=== PATIENT | female | born 1985 | race Caucasian/White ===

== ENCOUNTER 2016-09-17 10:20 | Emergency (ER) | payer OTHER ==
[~2016-09-17 10:20] MED LIST: /LAMO10TA PO; ALPR0.5T3 PO; BACTDSTA PO; BUPR10TASR PO; BUPR15TAXL PO; CLIN1CAP5 PO; DOCU100T PO; GILD1TAB PO; IBUP100SUS PO; IRON325T3 PO; LAMO10TA PO; LITH300C PO; MACR100C3 PO; MICR1TAB PO; POTA20PW PO; PRENTAB74; PRENTAB74 PO; PROZ20CA11 PO; TRAZ100T2 PO; TRAZ100T4 PO; TYLE325T5 PO; VENL37TA PO; VENL75CA47 PO; VICO5TAB PO; VITA100C7 PO; XANA0.5T PO; XANA1TAB2 PO; ZOFR4TAB3 PO; ZOLO50TA PO; [UNRECOGNIZED DRUG - REMARK] PO; birth control PO; birth control pill PO
--- NOTE | 2016-09-17 11:32 | EDDOCDS ---
Nurse's Notes [facility] Name: Hoa Delgadillo Age: 31 yrs Sex: Female : 1985 Arrival Date: 09/17/2016 Time: 10:20 Bed TR8 Private MD: Delfino, Family Dr Diagnosis: Acute upper respiratory infections of multiple and unspecified sites;Acute bronchitis Presentation: 09/17 10:31 Presenting complaint: Patient states: she has had a cold since Wednesday and now has chest kcs heaviness and hurts to breathe. Adult Sepsis Screening: The patient does not have new or worsening altered mentation. Patient's respiratory rate is less than 22. Systolic blood pressure is greater than 100. Patient has a qSOFA score of 0- Negative Sepsis Screen. Suicide/Homicide risk assessment- the patient denies having any suicidal and/or homicidal ideations and does not present with any other emotional, behavioral or mental health complaints. 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 Transition of care: patient was not received from another setting of care. 10:31 Acuity: SEBASTIÁN Level 4 kcs 10:31 Method Of Arrival: Walkin/Carried/Asstd kcs Triage Assessment: 10:33 General: Appears comfortable, well developed, well nourished, well groomed, Behavior is kcs cooperative, pleasant, texting constantly during truage. Pain: Location: chest Pain currently is 1 out of 10 on a pain scale. HIV screening NA for this visit Offered previously. Neurological: Level of Consciousness is awake, alert. Respiratory: Airway is patent Respiratory effort is even, unlabored, Respiratory pattern is regular, symmetrical. Respiratory: Reports shortness of breath cough that is productive, clear. Derm: Skin is intact, is healthy with good turgor, Skin is dry, Skin is normal. 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 lamotrigine 150 mg Oral tab 1 tab once daily 2. trazodone 100 mg Oral tab nightly 3. BCP 1 tab once daily - PMHx: Anxiety; Depression; Bipolar disorder; Endometriosis; Epilepsy; Hepatitis C; Panic Attacks; PTSD; - PSHx: Cesearean Section; Tubal ligation; Hernia repair; - Social history: Smoking status: Patient states was never smoker of tobacco. No barriers to communication noted, The patient speaks fluent Maori. - Family history: Not pertinent. - : The pt / caregiver states he / she is not on anticoagulants. Home medication list is obtained from the patient, [employer] import data. - Exposure Risk Screening:: None identified. Screenin:14 Screening information is obtained from the patient. Primary language is Maori. Fall mk4 risk: No risks identified. Assistance ADL's: requires no assistance with activities of daily living. Abuse/DV Screen: The patient / caregiver reports he/she is: not in a situation that causes fear, pain or injury. 11:15 Nutritional screening: No deficits noted. Advance Directives: Currently, there is no mk4 health care proxy. There is no active DNR order. There is no living will. There is no Power of High School Coach. 11:30 home support is adequate. rs3 Assessment: 11:12 General: Appears in no apparent distress. Awake, alert, oriented. Skin warm and dry. mk4 Respirations unlabored. No apparent distress. The patient / caregiver is instructed regarding the plan of care and ED course. Physical assessment to be completed by SILVIANO/TRINI. Vital Signs: 10:21 BP 100 / 63; Pulse 65; Resp 16; Temp 97.8(O); Pulse Ox 99% ; Weight 61.23 kg (M); cmb Height 5 ft. 2 in. (157.48 cm); Pain 0/10; 10:21 Body Mass Index 24.69 (61.23 kg, 157.48 cm) cmb Vitals: 10:21 Log In Time: September 17, 2016 at 10:20. cmb ED Course: 10:21 Patient visited by Rose Marie Michel. cmb 10:21 NO PRIMARY PHYSICIAN, . is Private Physician. cmb 10:21 Unknown, Family Dr is Private Physician. cmb 10:21 Patient moved to Waiting cmb 10:22 Patient moved to Pre RCE cmb 10:32 Triage Initiated kcs 10:35 Patient moved to Triage 3 kcs 11:12 Patient visited by Yasmin Molina RN. mk4 11:15 Accompanied by Family Member. mk4 11:15 Agustín Madrigal PA-C is PHCP. cc10 11:15 Bird Johnson MD is Attending Physician. cc10 11:15 Patient visited by Agustín Madrigal PA-C. cc10 11:15 Patient visited by Agustín Madrigal PA-C. cc10 11:28 Patient moved to 8 rs3 11:30 No IV's were initiated during this patient's visit. No procedures done that require rs3 assistance. Order Results: There are currently no results for this order. Outcome: 11:21 Discharge ordered by Provider. cc10 11:29 Discharged to home ambulatory. Condition: stable. Discharge instructions given to rs3 patient, Instructed on discharge instructions, follow up and referral plans. medication usage. No special radiology studies were completed. 11:30 Discharge Assessment: patient administered narcotics - no. The following High Risk rs3 Discharge criteria are identified: None. Discharged to home with family. Property :Personal belongings accompany Pt. 11:30 Patient left the ED. rs3 Signatures: Leann Acosta RN RN [facility] Dona Browning RN RN rs3 Rose Marie Michel Margaret, RN RN 4 Agustín Madrigal PA-C PA-C cc10 BEVERLEY
--- NOTE | 2016-09-17 11:32 | EDDOCDS ---
Physician Documentation [facility] Name: Hoa Delgadillo Age: 31 yrs Sex: Female : 1985 Arrival Date: 09/17/2016 Time: 10:20 Bed TR8 Private MD: Unknown, Family Disposition: 09/17/16 11:21 Discharged to Home/Self Care. Impression: Acute upper respiratory infections of multiple and unspecified sites, Acute bronchitis. - Condition is Stable. - Discharge Instructions: Acute Bronchitis, Upper Respiratory Infection, Adult. - Prescriptions for Prednisone 20 mg Oral Tablet - take 1 tablet by ORAL route once daily for 5 days; 5 tablet. Albuterol Sulfate 2.5 mg /3 mL (0.083 %) Inhalation Solution for Nebulization - inhale 1 unit by NEBULIZATION route 4 times per day As needed; 1 box. Zithromax Z- Jay 250 mg Oral Tablet - take 1 tablet by ORAL route as directed for 5 days Day 1- take two tablets once. Day 2, 3, 4 , 5 take one tablet once daily.; 6 tablet. Guaifenesin- DM 10-100 mg/5 mL Oral Liquid - take 10 milliliter by ORAL route every 6 hours As needed; 200 milliliter. - Medication Reconciliation, Local Pharmacy Hours, Work Release Form - 1 day form. - Follow up: Emergency Department; When: As needed; Reason: Worsening of conditions. Follow up: Private Physician; When: Call to arrange an appointment; Reason: Wound/Symptom Recheck, Recheck today's complaints, Worsening of conditions, Continuance of care. - Problem is an ongoing problem. - Symptoms are unchanged. Historical: - Allergies: NSAIDS (Hives); - Home Meds: 1. lamotrigine 150 mg Oral tab 1 tab once daily 2. trazodone 100 mg Oral tab nightly 3. BCP 1 tab once daily - PMHx: Anxiety; Depression; Bipolar disorder; Endometriosis; Epilepsy; Hepatitis C; Panic Attacks; PTSD; - PSHx: Cesearean Section; Tubal ligation; Hernia repair; - Social history: Smoking status: Patient states was never smoker of tobacco. No barriers to communication noted, The patient speaks fluent Luxembourger. - Family history: Not pertinent. - : The pt / caregiver states he / she is not on anticoagulants. Home medication list is obtained from the patient, [employer] import data. - Exposure Risk Screening:: None identified. 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 2 in. (157.48 cm); Pain 0/10; 10:21 Body Mass Index 24.69 (61.23 kg, 157.48 cm) cmb MDM: 11:16 Financial registration complete. Signatures: Leann Acosta RN RN kcs Vanessa Kelly, Reg Reg lg Dona Browning RN RN rs3 Agustín Madrigal, PALuba PALuba cc10 MAURICED
--- NOTE | 2016-09-19 12:32 | EDDOCDS ---
Physician Documentation [facility] Name: Hoa Delgadillo Age: 31 yrs Sex: Female : 1985 Arrival Date: 09/17/2016 Time: 10:20 Bed TR8 Private MD: Unknown, Family Disposition: 09/17/16 11:21 Discharged to Home/Self Care. Impression: Acute upper respiratory infections of multiple and unspecified sites, Acute bronchitis. - Condition is Stable. - Discharge Instructions: Acute Bronchitis, Upper Respiratory Infection, Adult. - Prescriptions for Prednisone 20 mg Oral Tablet - take 1 tablet by ORAL route once daily for 5 days; 5 tablet. Albuterol Sulfate 2.5 mg /3 mL (0.083 %) Inhalation Solution for Nebulization - inhale 1 unit by NEBULIZATION route 4 times per day As needed; 1 box. Zithromax Z- Jay 250 mg Oral Tablet - take 1 tablet by ORAL route as directed for 5 days Day 1- take two tablets once. Day 2, 3, 4 , 5 take one tablet once daily.; 6 tablet. Guaifenesin- DM 10-100 mg/5 mL Oral Liquid - take 10 milliliter by ORAL route every 6 hours As needed; 200 milliliter. - Medication Reconciliation, Local Pharmacy Hours, Work Release Form - 1 day form. - Follow up: Emergency Department; When: As needed; Reason: Worsening of conditions. Follow up: Private Physician; When: Call to arrange an appointment; Reason: Wound/Symptom Recheck, Recheck today's complaints, Worsening of conditions, Continuance of care. - Problem is an ongoing problem. - Symptoms are unchanged. Historical: - Allergies: NSAIDS (Hives); - Home Meds: 1. lamotrigine 150 mg Oral tab 1 tab once daily 2. trazodone 100 mg Oral tab nightly 3. BCP 1 tab once daily - PMHx: Anxiety; Depression; Bipolar disorder; Endometriosis; Epilepsy; Hepatitis C; Panic Attacks; PTSD; - PSHx: Cesearean Section; Tubal ligation; Hernia repair; - Social history: Smoking status: Patient states was never smoker of tobacco. No barriers to communication noted, The patient speaks fluent Uzbek. - Family history: Not pertinent. - : The pt / caregiver states he / she is not on anticoagulants. Home medication list is obtained from the patient, [facility] import data. - Exposure Risk Screening:: None identified. 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 2 in. (157.48 cm); Pain 0/10; 10:21 Body Mass Index 24.69 (61.23 kg, 157.48 cm) cmb MDM: 11:16 Financial registration complete. lg 12:23 [facility] Payment Agreement was scanned into [employer] and attached to record. lg 13:53 T-Sheet-- Draft Copy was scanned into [employer] and attached to record. gb Signatures: Leann Acosta, RN RN kcs Vita Contreras, Reg Reg gb Vanessa Kelly, Reg Reg lg Dona Browning RN RN rs3 Agustín Madrigal, PA-C PA-C cc10 The chart was reviewed and I authenticate all verbal orders and agree with the evaluation and treatment provided.Attachments: 12:23 [facility] Payment Agreement lg 13:53 T-Sheet-- Draft Copy gb Chart Complete MTDD
--- NOTE | 2016-09-19 12:32 | EDDOCDS ---
Nurse's Notes [facility] Name: Hoa Delgadillo Age: 31 yrs Sex: Female : 1985 Arrival Date: 09/17/2016 Time: 10:20 Bed TR8 Private MD: Delfino, Family Dr Diagnosis: Acute upper respiratory infections of multiple and unspecified sites;Acute bronchitis Presentation: 09/17 10:31 Presenting complaint: Patient states: she has had a cold since Wednesday and now has chest kcs heaviness and hurts to breathe. Adult Sepsis Screening: The patient does not have new or worsening altered mentation. Patient's respiratory rate is less than 22. Systolic blood pressure is greater than 100. Patient has a qSOFA score of 0- Negative Sepsis Screen. Suicide/Homicide risk assessment- the patient denies having any suicidal and/or homicidal ideations and does not present with any other emotional, behavioral or mental health complaints. 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 Transition of care: patient was not received from another setting of care. 10:31 Acuity: SEBASTIÁN Level 4 kcs 10:31 Method Of Arrival: Walkin/Carried/Asstd kcs Triage Assessment: 10:33 General: Appears comfortable, well developed, well nourished, well groomed, Behavior is kcs cooperative, pleasant, texting constantly during truage. Pain: Location: chest Pain currently is 1 out of 10 on a pain scale. HIV screening NA for this visit Offered previously. Neurological: Level of Consciousness is awake, alert. Respiratory: Airway is patent Respiratory effort is even, unlabored, Respiratory pattern is regular, symmetrical. Respiratory: Reports shortness of breath cough that is productive, clear. Derm: Skin is intact, is healthy with good turgor, Skin is dry, Skin is normal. 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 lamotrigine 150 mg Oral tab 1 tab once daily 2. trazodone 100 mg Oral tab nightly 3. BCP 1 tab once daily - PMHx: Anxiety; Depression; Bipolar disorder; Endometriosis; Epilepsy; Hepatitis C; Panic Attacks; PTSD; - PSHx: Cesearean Section; Tubal ligation; Hernia repair; - Social history: Smoking status: Patient states was never smoker of tobacco. No barriers to communication noted, The patient speaks fluent Urdu. - Family history: Not pertinent. - : The pt / caregiver states he / she is not on anticoagulants. Home medication list is obtained from the patient, [employer] import data. - Exposure Risk Screening:: None identified. Screenin:14 Screening information is obtained from the patient. Primary language is Urdu. Fall mk4 risk: No risks identified. Assistance ADL's: requires no assistance with activities of daily living. Abuse/DV Screen: The patient / caregiver reports he/she is: not in a situation that causes fear, pain or injury. 11:15 Nutritional screening: No deficits noted. Advance Directives: Currently, there is no mk4 health care proxy. There is no active DNR order. There is no living will. There is no Power of Lifeguard. 11:30 home support is adequate. rs3 Assessment: 11:12 General: Appears in no apparent distress. Awake, alert, oriented. Skin warm and dry. mk4 Respirations unlabored. No apparent distress. The patient / caregiver is instructed regarding the plan of care and ED course. Physical assessment to be completed by SILVIANO/TRINI. Vital Signs: 10:21 BP 100 / 63; Pulse 65; Resp 16; Temp 97.8(O); Pulse Ox 99% ; Weight 61.23 kg (M); cmb Height 5 ft. 2 in. (157.48 cm); Pain 0/10; 10:21 Body Mass Index 24.69 (61.23 kg, 157.48 cm) cmb Vitals: 10:21 Log In Time: September 17, 2016 at 10:20. cmb ED Course: 10:21 Patient visited by Rose Marie Michel. cmb 10:21 NO PRIMARY PHYSICIAN, . is Private Physician. cmb 10:21 Unknown, Family Dr is Private Physician. cmb 10:21 Patient moved to Waiting cmb 10:22 Patient moved to Pre RCE cmb 10:32 Triage Initiated kcs 10:35 Patient moved to Triage 3 kcs 11:12 Patient visited by Yasmin Molina RN. mk4 11:15 Accompanied by Family Member. mk4 11:15 Agustín Madrigal PA-C is PHCP. cc10 11:15 Bird Johnson MD is Attending Physician. cc10 11:15 Patient visited by Agustín Madrigal PA-C. cc10 11:15 Patient visited by Agustín Madrigal PA-C. cc10 11:28 Patient moved to 8 rs3 11:30 No IV's were initiated during this patient's visit. No procedures done that require rs3 assistance. 12:23 [facility] Payment Agreement was scanned into [employer] and attached to record. lg 13:53 T-Sheet-- Draft Copy was scanned into [employer] and attached to record. gb Order Results: There are currently no results for this order. Outcome: 11:21 Discharge ordered by Provider. cc10 11:29 Discharged to home ambulatory. Condition: stable. Discharge instructions given to rs3 patient, Instructed on discharge instructions, follow up and referral plans. medication usage. No special radiology studies were completed. 11:30 Discharge Assessment: patient administered narcotics - no. The following High Risk rs3 Discharge criteria are identified: None. Discharged to home with family. Property :Personal belongings accompany Pt. 11:30 Patient left the ED. rs3 Signatures: Leann Acosta, RN RN kcs Vita Contreras, Reg Reg gb Vanessa Kelly, Reg Reg lg Dona Browning RN RN rs3 Rose Marie Michel Margaret, RN RN 4 Agustín Madrigal PA-C PA-C cc10 Chart Complete MTDD
--- NOTE | 2016-09-19 12:32 | EDDOCDS ---
Physician Documentation [facility] Name: Hoa Delgadillo Age: 31 yrs Sex: Female : 1985 Arrival Date: 09/17/2016 Time: 10:20 Bed TR8 Private MD: Unknown, Family Disposition: 09/17/16 11:21 Discharged to Home/Self Care. Impression: Acute upper respiratory infections of multiple and unspecified sites, Acute bronchitis. - Condition is Stable. - Discharge Instructions: Acute Bronchitis, Upper Respiratory Infection, Adult. - Prescriptions for Prednisone 20 mg Oral Tablet - take 1 tablet by ORAL route once daily for 5 days; 5 tablet. Albuterol Sulfate 2.5 mg /3 mL (0.083 %) Inhalation Solution for Nebulization - inhale 1 unit by NEBULIZATION route 4 times per day As needed; 1 box. Zithromax Z- Jay 250 mg Oral Tablet - take 1 tablet by ORAL route as directed for 5 days Day 1- take two tablets once. Day 2, 3, 4 , 5 take one tablet once daily.; 6 tablet. Guaifenesin- DM 10-100 mg/5 mL Oral Liquid - take 10 milliliter by ORAL route every 6 hours As needed; 200 milliliter. - Medication Reconciliation, Local Pharmacy Hours, Work Release Form - 1 day form. - Follow up: Emergency Department; When: As needed; Reason: Worsening of conditions. Follow up: Private Physician; When: Call to arrange an appointment; Reason: Wound/Symptom Recheck, Recheck today's complaints, Worsening of conditions, Continuance of care. - Problem is an ongoing problem. - Symptoms are unchanged. Historical: - Allergies: NSAIDS (Hives); - Home Meds: 1. lamotrigine 150 mg Oral tab 1 tab once daily 2. trazodone 100 mg Oral tab nightly 3. BCP 1 tab once daily - PMHx: Anxiety; Depression; Bipolar disorder; Endometriosis; Epilepsy; Hepatitis C; Panic Attacks; PTSD; - PSHx: Cesearean Section; Tubal ligation; Hernia repair; - Social history: Smoking status: Patient states was never smoker of tobacco. No barriers to communication noted, The patient speaks fluent Bhutanese. - Family history: Not pertinent. - : The pt / caregiver states he / she is not on anticoagulants. Home medication list is obtained from the patient, [employer] import data. - Exposure Risk Screening:: None identified. 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 2 in. (157.48 cm); Pain 0/10; 10:21 Body Mass Index 24.69 (61.23 kg, 157.48 cm) cmb MDM: 11:16 Financial registration complete. lg 12:23 [facility] Payment Agreement was scanned into [employer] and attached to record. lg 13:53 T-Sheet-- Draft Copy was scanned into [employer] and attached to record. gb Signatures: Leann Acosta, RN RN kcs Vita Contreras, Reg Reg gb Vanessa Kelly, Reg Reg lg Dona Browning RN RN rs3 Agustín Madrigal, PA-C PA-C cc10 The chart was reviewed and I authenticate all verbal orders and agree with the evaluation and treatment provided.Attachments: 12:23 [facility] Payment Agreement lg 13:53 T-Sheet-- Draft Copy gb Chart Complete MTDD
== END 2016-09-17 11:30 | disposition home or self-care (01) ==
LOC: M ED 10:20
DX: J20.9 Acute bronchitis, unspecified (principal); J06.9 Acute upper respiratory infection, unspecified; F31.9 Bipolar disorder, unspecified; F41.9 Anxiety disorder, unspecified; G40.909 Epilepsy, unspecified, not intractable, without status epilepticus; F43.10 Post-traumatic stress disorder, unspecified; B19.20 Unspecified viral hepatitis C without hepatic coma; Z88.8 Allergy status to other drugs, medicaments and biological substances

== ENCOUNTER 2016-10-05 05:50 | Emergency (ER) | payer OTHER ==
[2016-10-05] MEDS ORDERED: METOCLOPRAMIDE INJ 10MG/2ML VIAL (J2765) As Ordered ONE (07:33)
[2016-10-05 07:40] LABS: AMPHETAMINES LEVEL URINE NEGATIVE (NEGATIVE); BENZODIAZEPINES URINE NEGATIVE (NEGATIVE); COCAINE METABOLITE URINE NEGATIVE (NEGATIVE); CONTROL LINE INT CTR LINE PRESENT; METHADONE URINE NEGATIVE (NEGATIVE); OPIATES URINE NEGATIVE (NEGATIVE); TRICYCLIC ANTIDEPRESS URINE NEGATIVE (NEGATIVE)
--- NOTE | 2016-10-05 10:31 | EDDOCDS ---
Nurse's Notes [facility] Name: Hoa Delgadillo Age: 31 yrs Sex: Female : 1985 Arrival Date: 10/05/2016 Time: 05:50 Bed 6 Private MD: Diagnosis: Migraine;Epilepsy and recurrent [id number] Presentation: 10/05 05:53 Presenting complaint: EMS states: Pt was at work and had two witnessed seizures approx js15 30 secs each; coworker stated that she heard a loud bang and suspects pt hit her head; pt was post ictal upon fire dept arrival; pt awake and alert on arrival to ED; complains of headache 06/15; c-collar in place on arrival. Adult Sepsis Screening: Patient has new or worsening altered mentation (1 point). Patient's respiratory rate is less than 22. Systolic blood pressure is greater than 100. Patient has a qSOFA score of 1- Negative Sepsis Screen. Suicide/Homicide risk assessment- the patient denies having any suicidal and/or homicidal ideations and does not present with any other emotional, behavioral or mental health complaints. 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 Transition of care: patient was not received from another setting of care. Care prior to arrival: Saline lock initiated. Glucose check. FSBS 114. 05:53 Acuity: [place] Level 3 js15 05:53 Method Of Arrival: Ambulance js15 Triage Assessment: 05:58 General: Appears in no apparent distress, comfortable, Behavior is anxious, appropriate js15 for age, cooperative, crying. Pain: Location: head Pain currently is 10 out of 10 on a pain scale. HIV screening NA for this visit Offered previously. The patient is triaged at the bedside. See Assessment in Nurses Notes section of ED record. Neurological: Level of Consciousness is awake, alert, obeys commands, Oriented to person, place, time, Speech is normal, Facial symmetry appears normal. Respiratory: Airway is patent Respiratory effort is even, unlabored, Respiratory pattern is regular, symmetrical. Derm: Skin is pink, warm & dry. 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 BCP Oral 1 tab once daily 2. lamotrigine 150 mg Oral tab 1 tab once daily 3. trazodone 100 mg Oral tab nightly 4. Excedrin Migraine 250-250-65 mg Oral tab 1 tablet as needed (Last dose: 10/05/2016 02:00) - PMHx: Anxiety; Bipolar disorder; Depression; Epilepsy; Hepatitis C; Panic Attacks; PTSD; Endometriosis; - PSHx: Hernia repair- Left inguinal; Tubal ligation; Cesearean Section; - The history from nurses notes was reviewed: and I agree with what is documented. - Social history: Smoking status: Patient states was never smoker of tobacco. Patient/guardian denies using alcohol, No barriers to communication noted, The patient speaks fluent Hebrew, Speaks appropriately for age. - Family history: Not pertinent. - : The pt / caregiver states he / she is not on anticoagulants. Home medication list is obtained from the patient, [employer] import data. - Hospitalizations: : No recent hospitalization is reported. - Exposure Risk Screening:: None identified. - Immunization history:: All immunizations up-to-date. - Social history:: the patient smokes cigarettes the patient does not drink alcohol, the patient formerly used illicit drugs, including heroin. Screenin:00 Screening information is obtained from the patient. Fall risk: At risk due to seizure js15 activity. The following interventions are performed due to a positive Fall Risk Screen: seizure precautions, side rails up x2, bed in low position, call light in reach. Assistance ADL's: requires no assistance with activities of daily living. Abuse/DV Screen: The patient / caregiver reports he/she is: not in a situation that causes fear, pain or injury. Nutritional screening: No deficits noted. Advance Directives: There is no active DNR order. home support is adequate. Assessment: 06:06 Adult Sepsis Screening: The patient does not have new or worsening altered mentation. cz Patient's respiratory rate is less than 22. Systolic blood pressure is greater than 100. Patient has a qSOFA score of 0- Negative Sepsis Screen. General: Appears uncomfortable, Behavior is appropriate for age. Pain: Location: face. Neurological: No deficits noted. Level of Consciousness is awake, alert, Oriented to person, place, time, Speech is normal, Facial symmetry appears normal, Reports headache headache from forehead that radiates down to left eye,pt states typical for when she gets her migraine. 06:37 Reassessment: Patient states symptoms have not improved. pt resting in darkened room cz tearful with headache pain awaiting evaluation by provider no seizure activity at this time/seizure pads in place. 07:40 Reassessment: Patient appears in no apparent distress at this time. Pain: Location: kr3 headache Pain currently is 9 out of 10 on a pain scale. Neurological: Level of Consciousness is awake, alert, Gait is steady, Speech is normal. Respiratory: Respiratory effort is even, unlabored. Derm: Skin is normal. 08:05 Reassessment: Patient appears in no apparent distress at this time. talking on phone. kr3 09:57 General: Appears in no apparent distress, Behavior is sleeping. EENT: No deficits srm noted. Respiratory: Airway is patent Respiratory effort is even, unlabored. 10:29 Neurological: Level of Consciousness is awake, alert, Oriented to person, place, time, srm Edge Grinder Machine are equal bilaterally Moves all extremities. Full function Gait is steady, Speech is normal, Facial symmetry appears normal, Pupils are PERRLA. GI: No deficits noted. Vital Signs: 05:56 BP 113 / 74 RA Sitting (auto/reg); Pulse 74 MON; Resp 20 S; Temp 99.6(TE); Pulse Ox 98% cln on R/A; Weight 61.23 kg (R); Height 5 ft. 2 in. (157.48 cm) (R); Pain 9/10; 10:26 BP 99 / 65; Pulse 64; Resp 18; Temp 97.9(O); Pulse Ox 97% on R/A; lr2 05:56 Body Mass Index 24.69 (61.23 kg, 157.48 cm) cln Vitals: 05:58 Log In Time N/A - ambulance arrival. js15 ED Course: 05:51 Patient visited by Mukund Heaton PCA. kb5 05:51 Patient moved to Waiting kb5 05:51 Patient moved to 6 kb5 05:56 Triage Initiated js15 05:57 Patient visited by Hoa Weems PCA. cln 06:00 Bed in low position. Call light in reach. Side rails up X2. Seizure precautions js15 initiated. 06:00 Maintain field IV. Dressing intact. Site clean & dry. Gauge & site: 18 g LAC. js15 06:06 The patient / caregiver is instructed regarding the plan of care and ED course. cz 06:06 No procedures done that require assistance. cz 06:37 Patient visited by Romario Hurtado RN. cz 06:59 Cornelia Tan RN is Primary Nurse. kr3 07:04 Bird Johnson MD is Attending Physician. pc 07:16 Patient visited by Bird Johnson MD. pc 07:40 Prolactin Sent. kr3 07:40 Creatine Phosphokinase Sent. kr3 07:57 [facility] Payment Agreement was scanned into [employer] and attached to record. mm15 08:05 Patient visited by Cornelia Tan RN. kr3 08:51 Patient visited by Malathi Avila PCA. ct3 08:55 Sintia Saenz, RAE is Primary Nurse. srm 08:55 Report received from Porfirio Tan rn. srm 09:52 Patient visited by Bird Johnson MD. pc 09:57 Patient visited by Sintia Saenz RN. srm 10:04 Glenn Sanford MD is Referral Physician. pc 10:27 Patient visited by Kirstie Farias. lr2 10:29 Discontinued lock intact, bleeding controlled, pressure dressing applied, No srm redness/swelling at site. Administered Medications: 07:40 Drug: Metoclopramide 10 mg [metoclopramide 5 mg/mL injection solution] Route: IV; Rate: kr3 40 mg/hr; Infused Over: 15 mins; Site: left antecubital; 08:04 Follow up: IV Status: Completed infusion kr3 Order Results: Lab Order: Creatine Phosphokinase; SPEC'M 10/05/16 07:39 Test: CPK CREATINE PHOSPHOKINASE; Value: 63; Range: 26-192; Units: U/L; Status: F Lab Order: Drug Eval Toxicology ED Only; SPEC'M 10/05/16 07:20 Test: AMPHETAMINES LEVEL URINE; Value: NEGATIVE; Range: NEGATIVE; Status: F Test: BARBITURATES URINE; Value: NEGATIVE; Range: NEGATIVE; Status: F Test: BENZODIAZEPINES URINE; Value: NEGATIVE; Range: NEGATIVE; Status: F Test: CANNABINOIDS URINE; Value: NEGATIVE; Range: NEGATIVE; Status: F Test: COCAINE METABOLITE URINE; Value: NEGATIVE; Range: NEGATIVE; Status: F Test: METHADONE URINE; Value: NEGATIVE; Range: NEGATIVE; Status: F Test: OPIATES URINE; Value: NEGATIVE; Range: NEGATIVE; Status: F Test: TRICYCLIC ANTIDEPRESS URINE; Value: NEGATIVE; Range: NEGATIVE; Status: F Test Note: ; ALL PRESUMPTIVE POSITIVE FINDINGS ARE UNCONFIRMED NORMAL VALUES THRESHOLD IN NG/ML AMPHETAMINES 1000 METHAMPHETAMINES 1000 BARBITURATES 300 BENZODIAZEPINES 300 CANNABINOIDS (THC) 50 COCAINE METABOLITE 300 METHADONE 300 OPIATES 300 PHENCYCLIDINE 25 TRICYCLIC ANTIDEPRESSANTS 1000 RESULTS ARE FOR MEDICAL PURPOSES ONLY. ALL URINE SPECIMENS WILL BE SAVED FOR 3 DAYS. IF CONFIRMATION OF A PRESUMPTIVE POSTIVE SCREEN RESULT IS DESIRED, CALL CHEMISTRY ([phone]) AND REQUEST URINE TO BE SENT TO REFERENCE LAB. FOR A LIST OF CLOSELY RELATED COMPOUNDS PLEASE CALL THE LAB. Lab Order: Prolactin; SPEC'M 10/05/16 07:39 Test: PROLACTIN; Value: 5.8; Units: NG/ML; Status: F Test Note: ; Non-: 2.8 - 29.2 ng/mL : 9.7 - 208.5 ng/mL Post Menopausal: 1.8 - 20.3 ng/mL Outcome: 10:04 Discharge ordered by Provider. pc 10:29 Discharge Assessment: Patient awake, alert and oriented x 3. No cognitive and/or srm functional deficits noted. Patient verbalized understanding of disposition instructions. 10:30 Discharge Assessment: patient administered narcotics - no. The following High Risk srm Discharge criteria are identified: None. Discharged to home ambulatory. Condition: stable. Discharge instructions given to patient, Instructed on discharge instructions, follow up and referral plans. Demonstrated understanding of instructions, Pt was receptive of discharge instructions/ teaching. Work note provided to patient. No special radiology studies were completed. Property sent home with patient. 10:30 Patient left the ED. srm Signatures: Bird Johnson MD MD pc Michelson, Staci RN RN srm Romario Hurtado, RN RN Cornelia Ford RN RN valeri3 Mukund Heaton, GLASS LAMINATING OPERATOR GLASS LAMINATING OPERATOR kb5 Malathi Avila, GLASS LAMINATING OPERATOR GLASS LAMINATING OPERATOR ct3 William Coleman mm15 Trina Campbell RN RN js15 Hoa Weems, GLASS LAMINATING OPERATOR GLASS LAMINATING OPERATOR cln Kirstie Farias2 MTDD
--- NOTE | 2016-10-05 10:31 | EDDOCDS ---
Physician Documentation [facility] Name: Hoa Delgadillo Age: 31 yrs Sex: Female : 1985 Arrival Date: 10/05/2016 Time: 05:50 Bed 6 Private MD: Disposition: 10/05 10:01 Critical Care: Critical care not applicable. pc Disposition: 10/05/16 10:04 Discharged to Home/Self Care. Impression: Migraine, Epilepsy and recurrent seizures - non-epileptic. - Condition is Stable. - Discharge Instructions: Migraine Headache, Nonepileptic Seizures. - Medication Reconciliation, Local Pharmacy Hours form. - Follow up: Glenn Sanford MD; When: Call to arrange an appointment; Reason: To establish care. - Problem is an acute exacerbation. - Symptoms have improved. HPI: 07:23 This 31 yrs old Female presents to ER via Ambulance with complaints of pc Seizure. 07:23 The history is obtained from the patient. She actually complains of a migraine headache pc that she has had for 2 days. She gets them 3-4 times per year, always the same intensity, with photophobia and nausea but without emesis. Today is no different than those. She was at work last night and reportedly had 2 seizures, where she slipped off her chair and went to the floor and "shook" for 30 seconds, without incontinence, without injury and without a post-ictal period, per co-worker witnesses. She has not seen her Neurologist in 5 months. She denies any recent IV drug use, last using heroin in February. The patient has experienced similar episodes in the past, multiple times. The patient has been recently seen by an infectious disease specialist. Her EEGs have all been normal since 2008. She had a video EEG done in 2012 but she says she does not know the results but states she has epilepsy. Historical: - Allergies: NSAIDS (Hives); - Home Meds: 1. BCP Oral 1 tab once daily 2. lamotrigine 150 mg Oral tab 1 tab once daily 3. trazodone 100 mg Oral tab nightly 4. Excedrin Migraine 250-250-65 mg Oral tab 1 tablet as needed (Last dose: 10/05/2016 02:00) - PMHx: Anxiety; Bipolar disorder; Depression; Epilepsy; Hepatitis C; Panic Attacks; PTSD; Endometriosis; - PSHx: Hernia repair- Left inguinal; Tubal ligation; Cesearean Section; - The history from nurses notes was reviewed: and I agree with what is documented. - Social history: Smoking status: Patient states was never smoker of tobacco. Patient/guardian denies using alcohol, No barriers to communication noted, The patient speaks fluent Thai, Speaks appropriately for age. - Family history: Not pertinent. - : The pt / caregiver states he / she is not on anticoagulants. Home medication list is obtained from the patient, [employer] import data. - Hospitalizations: : No recent hospitalization is reported. - Exposure Risk Screening:: None identified. - Immunization history:: All immunizations up-to-date. - Social history:: the patient smokes cigarettes the patient does not drink alcohol, the patient formerly used illicit drugs, including heroin. 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 pc Exam: 07:23 General Appearance: no acute distress, alert. pc 07:23 EENT: normal eye inspection, ears, nose and throat normal, pharynx normal, mucous membranes moist 07:23 Neck: The exam reveals no acute abnormalities. ROM is normal and painless. No nuchal rigidity is noted.. 07:23 Respiratory: no respiratory distress, normal breath sounds. 07:23 CVS: regular pulse rate, regular rhythm, normal S1 and S2, no murmurs, strong peripheral pulses. 07:23 Abdomen: soft, non-tender, no organomegaly, normal bowel sounds. 07:23 Back: normal inspection. 07:23 Skin: skin color is normal, warm, dry. 07:23 Extremities: The extremities have a grossly normal appearance, are non-tender, without acute ROM abnormalities. 07:23 Neuro: oriented x 3, cranial nerves normal as tested, no motor deficits, no sensory deficits, normal gait, Cerebellar function: normal finger to nose testing, Romberg testing is negative, Deep tendon reflexes are normal, normal upgoing toes are appreciated bilaterally. 07:23 Psych: normal mood. Vital Signs: 05:56 BP 113 / 74 RA Sitting (auto/reg); Pulse 74 MON; Resp 20 S; Temp 99.6(TE); Pulse Ox 98% cln on R/A; Weight 61.23 kg / 134.99 lbs (R); Height 5 ft. 2 in. (157.48 cm) (R); Pain 9/10; 10:26 BP 99 / 65; Pulse 64; Resp 18; Temp 97.9(O); Pulse Ox 97% on R/A; lr2 05:56 Body Mass Index 24.69 (61.23 kg, 157.48 cm) cln MDM: 07:17 Creatine Phosphokinase Ordered. EDMS 07:17 Drug Eval Toxicology ED Only Ordered. EDMS 07:17 Prolactin Ordered. EDMS 07:23 IV Saline Lock ordered. pc 07:23 Metoclopramide 10 mg IV at 40 mg/hr once over 15 mins ordered. pc 07:23 Differential Diagnosis: headache with migraine history and no focal neurological pc findings; reported seizure with history of seizures v pseudoseizures. Plan: labs, meds, d/w Neuro. 07:29 Financial registration complete. mm15 07:57 [facility] Payment Agreement was scanned into [employer] and attached to record. mm15 08:08 Drug Eval Toxicology ED Only Reviewed. pc 09:52 Creatine Phosphokinase Reviewed. pc 10:01 Data reviewed: old medical records, vital signs, nurses notes, lab test results. Test pc interpretation: LAB - all labs as ordered have been reviewed, interpreted and considered in the overall management of the clinical presentation;. The patient has been re-examined and re-evaluated. The patient's symptoms have mildly improved after treatment. Physician consultation: Dr. Glenn Sanford MD was contacted at 10:02, regarding patient's condition, and he advises that she saw Dr. Hernández in 2013, and was a no-show for follow up testing, with a presumptive diagnosis of pseudoseizures . Disposition: The historical points, examination findings, and any diagnostic results supporting the provided diagnosis, were discussed with the patient or legal guardian. The need for outpatient follow up with the provider listed on their discharge instructions was discussed. They were encouraged to return to [facility], or the nearest ED, if symptoms worsen/persist, or for any other questions/concerns. Administered Medications: 07:40 Drug: Metoclopramide 10 mg [metoclopramide 5 mg/mL injection solution] Route: IV; Rate: kr3 40 mg/hr; Infused Over: 15 mins; Site: left antecubital; 08:04 Follow up: IV Status: Completed infusion kr3 Signatures: Dispatcher [employer] Bird Villa MD MD pc Michelson, Staci, RN RN srm Romario Hurtado RN RN cz McGrath, Marlynn mm15 Trina Campbell RN RN js15 Cornelia Tan RN kr3 The chart was reviewed and I authenticate all verbal orders and agree with the evaluation and treatment provided.Attachments: 07:57 [facility] Payment Agreement mm15 MTDD
--- NOTE | 2016-10-07 11:31 | EDDOCDS ---
Physician Documentation [facility] Name: Hoa Delgadillo Age: 31 yrs Sex: Female : 1985 Arrival Date: 10/05/2016 Time: 05:50 Bed 6 Private MD: Disposition: 10/05 10:01 Critical Care: Critical care not applicable. pc Disposition: 10/05/16 10:04 Discharged to Home/Self Care. Impression: Migraine, Epilepsy and recurrent seizures - non-epileptic. - Condition is Stable. - Discharge Instructions: Migraine Headache, Nonepileptic Seizures. - Medication Reconciliation, Local Pharmacy Hours form. - Follow up: Glenn Sanford MD; When: Call to arrange an appointment; Reason: To establish care. - Problem is an acute exacerbation. - Symptoms have improved. HPI: 07:23 This 31 yrs old Female presents to ER via Ambulance with complaints of pc Seizure. 07:23 The history is obtained from the patient. She actually complains of a migraine headache pc that she has had for 2 days. She gets them 3-4 times per year, always the same intensity, with photophobia and nausea but without emesis. Today is no different than those. She was at work last night and reportedly had 2 seizures, where she slipped off her chair and went to the floor and "shook" for 30 seconds, without incontinence, without injury and without a post-ictal period, per co-worker witnesses. She has not seen her Neurologist in 5 months. She denies any recent IV drug use, last using heroin in February. The patient has experienced similar episodes in the past, multiple times. The patient has been recently seen by an infectious disease specialist. Her EEGs have all been normal since 2008. She had a video EEG done in 2012 but she says she does not know the results but states she has epilepsy. Historical: - Allergies: NSAIDS (Hives); - Home Meds: 1. BCP Oral 1 tab once daily 2. lamotrigine 150 mg Oral tab 1 tab once daily 3. trazodone 100 mg Oral tab nightly 4. Excedrin Migraine 250-250-65 mg Oral tab 1 tablet as needed (Last dose: 10/05/2016 02:00) - PMHx: Anxiety; Bipolar disorder; Depression; Epilepsy; Hepatitis C; Panic Attacks; PTSD; Endometriosis; - PSHx: Hernia repair- Left inguinal; Tubal ligation; Cesearean Section; - The history from nurses notes was reviewed: and I agree with what is documented. - Social history: Smoking status: Patient states was never smoker of tobacco. Patient/guardian denies using alcohol, No barriers to communication noted, The patient speaks fluent Slovenian, Speaks appropriately for age. - Family history: Not pertinent. - : The pt / caregiver states he / she is not on anticoagulants. Home medication list is obtained from the patient, [employer] import data. - Hospitalizations: : No recent hospitalization is reported. - Exposure Risk Screening:: None identified. - Immunization history:: All immunizations up-to-date. - Social history:: the patient smokes cigarettes the patient does not drink alcohol, the patient formerly used illicit drugs, including heroin. 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 pc Exam: 07:23 General Appearance: no acute distress, alert. pc 07:23 EENT: normal eye inspection, ears, nose and throat normal, pharynx normal, mucous membranes moist 07:23 Neck: The exam reveals no acute abnormalities. ROM is normal and painless. No nuchal rigidity is noted.. 07:23 Respiratory: no respiratory distress, normal breath sounds. 07:23 CVS: regular pulse rate, regular rhythm, normal S1 and S2, no murmurs, strong peripheral pulses. 07:23 Abdomen: soft, non-tender, no organomegaly, normal bowel sounds. 07:23 Back: normal inspection. 07:23 Skin: skin color is normal, warm, dry. 07:23 Extremities: The extremities have a grossly normal appearance, are non-tender, without acute ROM abnormalities. 07:23 Neuro: oriented x 3, cranial nerves normal as tested, no motor deficits, no sensory deficits, normal gait, Cerebellar function: normal finger to nose testing, Romberg testing is negative, Deep tendon reflexes are normal, normal upgoing toes are appreciated bilaterally. 07:23 Psych: normal mood. Vital Signs: 05:56 BP 113 / 74 RA Sitting (auto/reg); Pulse 74 MON; Resp 20 S; Temp 99.6(TE); Pulse Ox 98% cln on R/A; Weight 61.23 kg / 134.99 lbs (R); Height 5 ft. 2 in. (157.48 cm) (R); Pain 9/10; 10:26 BP 99 / 65; Pulse 64; Resp 18; Temp 97.9(O); Pulse Ox 97% on R/A; lr2 05:56 Body Mass Index 24.69 (61.23 kg, 157.48 cm) cln MDM: 07:17 Creatine Phosphokinase Ordered. EDMS 07:17 Drug Eval Toxicology ED Only Ordered. EDMS 07:17 Prolactin Ordered. EDMS 07:23 IV Saline Lock ordered. pc 07:23 Metoclopramide 10 mg IV at 40 mg/hr once over 15 mins ordered. pc 07:23 Differential Diagnosis: headache with migraine history and no focal neurological pc findings; reported seizure with history of seizures v pseudoseizures. Plan: labs, meds, d/w Neuro. 07:29 Financial registration complete. mm15 07:57 [facility] Payment Agreement was scanned into [employer] and attached to record. mm15 08:08 Drug Eval Toxicology ED Only Reviewed. pc 09:52 Creatine Phosphokinase Reviewed. pc 10:01 Data reviewed: old medical records, vital signs, nurses notes, lab test results. Test pc interpretation: LAB - all labs as ordered have been reviewed, interpreted and considered in the overall management of the clinical presentation;. The patient has been re-examined and re-evaluated. The patient's symptoms have mildly improved after treatment. Physician consultation: Dr. Glenn Sanford MD was contacted at 10:02, regarding patient's condition, and he advises that she saw Dr. Hernández in 2013, and was a no-show for follow up testing, with a presumptive diagnosis of pseudoseizures . Disposition: The historical points, examination findings, and any diagnostic results supporting the provided diagnosis, were discussed with the patient or legal guardian. The need for outpatient follow up with the provider listed on their discharge instructions was discussed. They were encouraged to return to [facility], or the nearest ED, if symptoms worsen/persist, or for any other questions/concerns. Administered Medications: 07:40 Drug: Metoclopramide 10 mg [metoclopramide 5 mg/mL injection solution] Route: IV; Rate: kr3 40 mg/hr; Infused Over: 15 mins; Site: left antecubital; 08:04 Follow up: IV Status: Completed infusion kr3 Signatures: Dispatcher [employer] Bird Villa MD MD pc Michelson, Staci, RN RN srm Romario Hurtado RN RN cz McGrath, Marlynn mm15 Trina Campbell RN RN js15 Cornelia Tan RN kr3 The chart was reviewed and I authenticate all verbal orders and agree with the evaluation and treatment provided.Attachments: 07:57 [facility] Payment Agreement mm15 Chart Complete MTDD
--- NOTE | 2016-10-07 11:31 | EDDOCDS ---
Physician Documentation [facility] Name: Hoa Delgadillo Age: 31 yrs Sex: Female : 1985 Arrival Date: 10/05/2016 Time: 05:50 Bed 6 Private MD: Disposition: 10/05 10:01 Critical Care: Critical care not applicable. pc Disposition: 10/05/16 10:04 Discharged to Home/Self Care. Impression: Migraine, Epilepsy and recurrent seizures - non-epileptic. - Condition is Stable. - Discharge Instructions: Migraine Headache, Nonepileptic Seizures. - Medication Reconciliation, Local Pharmacy Hours form. - Follow up: Glenn Sanford MD; When: Call to arrange an appointment; Reason: To establish care. - Problem is an acute exacerbation. - Symptoms have improved. HPI: 07:23 This 31 yrs old Female presents to ER via Ambulance with complaints of pc Seizure. 07:23 The history is obtained from the patient. She actually complains of a migraine headache pc that she has had for 2 days. She gets them 3-4 times per year, always the same intensity, with photophobia and nausea but without emesis. Today is no different than those. She was at work last night and reportedly had 2 seizures, where she slipped off her chair and went to the floor and "shook" for 30 seconds, without incontinence, without injury and without a post-ictal period, per co-worker witnesses. She has not seen her Neurologist in 5 months. She denies any recent IV drug use, last using heroin in February. The patient has experienced similar episodes in the past, multiple times. The patient has been recently seen by an infectious disease specialist. Her EEGs have all been normal since 2008. She had a video EEG done in 2012 but she says she does not know the results but states she has epilepsy. Historical: - Allergies: NSAIDS (Hives); - Home Meds: 1. BCP Oral 1 tab once daily 2. lamotrigine 150 mg Oral tab 1 tab once daily 3. trazodone 100 mg Oral tab nightly 4. Excedrin Migraine 250-250-65 mg Oral tab 1 tablet as needed (Last dose: 10/05/2016 02:00) - PMHx: Anxiety; Bipolar disorder; Depression; Epilepsy; Hepatitis C; Panic Attacks; PTSD; Endometriosis; - PSHx: Hernia repair- Left inguinal; Tubal ligation; Cesearean Section; - The history from nurses notes was reviewed: and I agree with what is documented. - Social history: Smoking status: Patient states was never smoker of tobacco. Patient/guardian denies using alcohol, No barriers to communication noted, The patient speaks fluent Eritrean, Speaks appropriately for age. - Family history: Not pertinent. - : The pt / caregiver states he / she is not on anticoagulants. Home medication list is obtained from the patient, [employer] import data. - Hospitalizations: : No recent hospitalization is reported. - Exposure Risk Screening:: None identified. - Immunization history:: All immunizations up-to-date. - Social history:: the patient smokes cigarettes the patient does not drink alcohol, the patient formerly used illicit drugs, including heroin. COLD ROLL P[employer] SHE[employer] IRON: 05:58 LMP 08/2016 js15 ROS: 07:23 All systems are negative except as listed. pc Exam: 07:23 General Appearance: no acute distress, alert. pc 07:23 EENT: normal eye inspection, ears, nose and throat normal, pharynx normal, mucous membranes moist 07:23 Neck: The exam reveals no acute abnormalities. ROM is normal and painless. No nuchal rigidity is noted.. 07:23 Respiratory: no respiratory distress, normal breath sounds. 07:23 CVS: regular pulse rate, regular rhythm, normal S1 and S2, no murmurs, strong peripheral pulses. 07:23 Abdomen: soft, non-tender, no organomegaly, normal bowel sounds. 07:23 Back: normal inspection. 07:23 Skin: skin color is normal, warm, dry. 07:23 Extremities: The extremities have a grossly normal appearance, are non-tender, without acute ROM abnormalities. 07:23 Neuro: oriented x 3, cranial nerves normal as tested, no motor deficits, no sensory deficits, normal gait, Cerebellar function: normal finger to nose testing, Romberg testing is negative, Deep tendon reflexes are normal, normal upgoing toes are appreciated bilaterally. 07:23 Psych: normal mood. Vital Signs: 05:56 BP 113 / 74 RA Sitting (auto/reg); Pulse 74 MON; Resp 20 S; Temp 99.6(TE); Pulse Ox 98% cln on R/A; Weight 61.23 kg / 134.99 lbs (R); Height 5 ft. 2 in. (157.48 cm) (R); Pain 9/10; 10:26 BP 99 / 65; Pulse 64; Resp 18; Temp 97.9(O); Pulse Ox 97% on R/A; lr2 05:56 Body Mass Index 24.69 (61.23 kg, 157.48 cm) cln MDM: 07:17 Creatine Phosphokinase Ordered. EDMS 07:17 Drug Eval Toxicology ED Only Ordered. EDMS 07:17 Prolactin Ordered. EDMS 07:23 IV Saline Lock ordered. pc 07:23 Metoclopramide 10 mg IV at 40 mg/hr once over 15 mins ordered. pc 07:23 Differential Diagnosis: headache with migraine history and no focal neurological pc findings; reported seizure with history of seizures v pseudoseizures. Plan: labs, meds, d/w Neuro. 07:29 Financial registration complete. mm15 07:57 [facility] Payment Agreement was scanned into [employer] and attached to record. mm15 08:08 Drug Eval Toxicology ED Only Reviewed. pc 09:52 Creatine Phosphokinase Reviewed. pc 10:01 Data reviewed: old medical records, vital signs, nurses notes, lab test results. Test pc interpretation: LAB - all labs as ordered have been reviewed, interpreted and considered in the overall management of the clinical presentation;. The patient has been re-examined and re-evaluated. The patient's symptoms have mildly improved after treatment. Physician consultation: Dr. Glenn Sanford MD was contacted at 10:02, regarding patient's condition, and he advises that she saw Dr. Hernández in 2013, and was a no-show for follow up testing, with a presumptive diagnosis of pseudoseizures . Disposition: The historical points, examination findings, and any diagnostic results supporting the provided diagnosis, were discussed with the patient or legal guardian. The need for outpatient follow up with the provider listed on their discharge instructions was discussed. They were encouraged to return to [facility], or the nearest ED, if symptoms worsen/persist, or for any other questions/concerns. Administered Medications: 07:40 Drug: Metoclopramide 10 mg [metoclopramide 5 mg/mL injection solution] Route: IV; Rate: kr3 40 mg/hr; Infused Over: 15 mins; Site: left antecubital; 08:04 Follow up: IV Status: Completed infusion kr3 Signatures: Dispatcher [employer] Bird Villa MD MD pc Michelson, Staci, RN RN srm Romario Hurtado RN RN cz McGrath, Marlynn mm15 Trina Campbell RN RN js15 Cornelia Tan RN kr3 The chart was reviewed and I authenticate all verbal orders and agree with the evaluation and treatment provided.Attachments: 07:57 [facility] Payment Agreement mm15 Chart Complete MTDD
--- NOTE | 2016-10-07 11:31 | EDDOCDS ---
Nurse's Notes [facility] Name: Hoa Delgadillo Age: 31 yrs Sex: Female : 1985 Arrival Date: 10/05/2016 Time: 05:50 Bed 6 Private MD: Diagnosis: Migraine;Epilepsy and recurrent [id number] Presentation: 10/05 05:53 Presenting complaint: EMS states: Pt was at work and had two witnessed seizures approx js15 30 secs each; coworker stated that she heard a loud bang and suspects pt hit her head; pt was post ictal upon fire dept arrival; pt awake and alert on arrival to ED; complains of headache 06/15; c-collar in place on arrival. Adult Sepsis Screening: Patient has new or worsening altered mentation (1 point). Patient's respiratory rate is less than 22. Systolic blood pressure is greater than 100. Patient has a qSOFA score of 1- Negative Sepsis Screen. Suicide/Homicide risk assessment- the patient denies having any suicidal and/or homicidal ideations and does not present with any other emotional, behavioral or mental health complaints. 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 Transition of care: patient was not received from another setting of care. Care prior to arrival: Saline lock initiated. Glucose check. FSBS 114. 05:53 Acuity: [place] Level 3 js15 05:53 Method Of Arrival: Ambulance js15 Triage Assessment: 05:58 General: Appears in no apparent distress, comfortable, Behavior is anxious, appropriate js15 for age, cooperative, crying. Pain: Location: head Pain currently is 10 out of 10 on a pain scale. HIV screening NA for this visit Offered previously. The patient is triaged at the bedside. See Assessment in Nurses Notes section of ED record. Neurological: Level of Consciousness is awake, alert, obeys commands, Oriented to person, place, time, Speech is normal, Facial symmetry appears normal. Respiratory: Airway is patent Respiratory effort is even, unlabored, Respiratory pattern is regular, symmetrical. Derm: Skin is pink, warm & dry. COMPREHENSIVE OPHTHALMOLOGIST: 05:58 LMP 08/2016 js15 Historical: - Allergies: NSAIDS (Hives); - Home Meds: 1. BCP Oral 1 tab once daily 2. lamotrigine 150 mg Oral tab 1 tab once daily 3. trazodone 100 mg Oral tab nightly 4. Excedrin Migraine 250-250-65 mg Oral tab 1 tablet as needed (Last dose: 10/05/2016 02:00) - PMHx: Anxiety; Bipolar disorder; Depression; Epilepsy; Hepatitis C; Panic Attacks; PTSD; Endometriosis; - PSHx: Hernia repair- Left inguinal; Tubal ligation; Cesearean Section; - The history from nurses notes was reviewed: and I agree with what is documented. - Social history: Smoking status: Patient states was never smoker of tobacco. Patient/guardian denies using alcohol, No barriers to communication noted, The patient speaks fluent Urdu, Speaks appropriately for age. - Family history: Not pertinent. - : The pt / caregiver states he / she is not on anticoagulants. Home medication list is obtained from the patient, [employer] import data. - Hospitalizations: : No recent hospitalization is reported. - Exposure Risk Screening:: None identified. - Immunization history:: All immunizations up-to-date. - Social history:: the patient smokes cigarettes the patient does not drink alcohol, the patient formerly used illicit drugs, including heroin. Screenin:00 Screening information is obtained from the patient. Fall risk: At risk due to seizure js15 activity. The following interventions are performed due to a positive Fall Risk Screen: seizure precautions, side rails up x2, bed in low position, call light in reach. Assistance ADL's: requires no assistance with activities of daily living. Abuse/DV Screen: The patient / caregiver reports he/she is: not in a situation that causes fear, pain or injury. Nutritional screening: No deficits noted. Advance Directives: There is no active DNR order. home support is adequate. Assessment: 06:06 Adult Sepsis Screening: The patient does not have new or worsening altered mentation. cz Patient's respiratory rate is less than 22. Systolic blood pressure is greater than 100. Patient has a qSOFA score of 0- Negative Sepsis Screen. General: Appears uncomfortable, Behavior is appropriate for age. Pain: Location: face. Neurological: No deficits noted. Level of Consciousness is awake, alert, Oriented to person, place, time, Speech is normal, Facial symmetry appears normal, Reports headache headache from forehead that radiates down to left eye,pt states typical for when she gets her migraine. 06:37 Reassessment: Patient states symptoms have not improved. pt resting in darkened room cz tearful with headache pain awaiting evaluation by provider no seizure activity at this time/seizure pads in place. 07:40 Reassessment: Patient appears in no apparent distress at this time. Pain: Location: kr3 headache Pain currently is 9 out of 10 on a pain scale. Neurological: Level of Consciousness is awake, alert, Gait is steady, Speech is normal. Respiratory: Respiratory effort is even, unlabored. Derm: Skin is normal. 08:05 Reassessment: Patient appears in no apparent distress at this time. talking on phone. kr3 09:57 General: Appears in no apparent distress, Behavior is sleeping. EENT: No deficits srm noted. Respiratory: Airway is patent Respiratory effort is even, unlabored. 10:29 Neurological: Level of Consciousness is awake, alert, Oriented to person, place, time, srm Database Support are equal bilaterally Moves all extremities. Full function Gait is steady, Speech is normal, Facial symmetry appears normal, Pupils are PERRLA. GI: No deficits noted. Vital Signs: 05:56 BP 113 / 74 RA Sitting (auto/reg); Pulse 74 MON; Resp 20 S; Temp 99.6(TE); Pulse Ox 98% cln on R/A; Weight 61.23 kg (R); Height 5 ft. 2 in. (157.48 cm) (R); Pain 9/10; 10:26 BP 99 / 65; Pulse 64; Resp 18; Temp 97.9(O); Pulse Ox 97% on R/A; lr2 05:56 Body Mass Index 24.69 (61.23 kg, 157.48 cm) cln Vitals: 05:58 Log In Time N/A - ambulance arrival. js15 ED Course: 05:51 Patient visited by Mukund Heaton PCA. kb5 05:51 Patient moved to Waiting kb5 05:51 Patient moved to 6 kb5 05:56 Triage Initiated js15 05:57 Patient visited by Hoa Weems PCA. cln 06:00 Bed in low position. Call light in reach. Side rails up X2. Seizure precautions js15 initiated. 06:00 Maintain field IV. Dressing intact. Site clean & dry. Gauge & site: 18 g LAC. js15 06:06 The patient / caregiver is instructed regarding the plan of care and ED course. cz 06:06 No procedures done that require assistance. cz 06:37 Patient visited by Romario Hurtado RN. cz 06:59 Cornelia Tan RN is Primary Nurse. kr3 07:04 Bird Johnson MD is Attending Physician. pc 07:16 Patient visited by Bird Johnson MD. pc 07:40 Prolactin Sent. kr3 07:40 Creatine Phosphokinase Sent. kr3 07:57 [facility] Payment Agreement was scanned into [employer] and attached to record. mm15 08:05 Patient visited by Cornelia Tan RN. kr3 08:51 Patient visited by Malathi Avila PCA. ct3 08:55 Sintia Saenz, RAE is Primary Nurse. srm 08:55 Report received from Porfirio Tan rn. srm 09:52 Patient visited by Bird Johnson MD. pc 09:57 Patient visited by Sintia Saenz RN. srm 10:04 Glenn Sanford MD is Referral Physician. pc 10:27 Patient visited by Kirstie Farias. lr2 10:29 Discontinued lock intact, bleeding controlled, pressure dressing applied, No srm redness/swelling at site. Administered Medications: 07:40 Drug: Metoclopramide 10 mg [metoclopramide 5 mg/mL injection solution] Route: IV; Rate: kr3 40 mg/hr; Infused Over: 15 mins; Site: left antecubital; 08:04 Follow up: IV Status: Completed infusion kr3 Order Results: Lab Order: Creatine Phosphokinase; SPEC'M 10/05/16 07:39 Test: CPK CREATINE PHOSPHOKINASE; Value: 63; Range: 26-192; Units: U/L; Status: F Lab Order: Drug Eval Toxicology ED Only; SPEC'M 10/05/16 07:20 Test: AMPHETAMINES LEVEL URINE; Value: NEGATIVE; Range: NEGATIVE; Status: F Test: BARBITURATES URINE; Value: NEGATIVE; Range: NEGATIVE; Status: F Test: BENZODIAZEPINES URINE; Value: NEGATIVE; Range: NEGATIVE; Status: F Test: CANNABINOIDS URINE; Value: NEGATIVE; Range: NEGATIVE; Status: F Test: COCAINE METABOLITE URINE; Value: NEGATIVE; Range: NEGATIVE; Status: F Test: METHADONE URINE; Value: NEGATIVE; Range: NEGATIVE; Status: F Test: OPIATES URINE; Value: NEGATIVE; Range: NEGATIVE; Status: F Test: TRICYCLIC ANTIDEPRESS URINE; Value: NEGATIVE; Range: NEGATIVE; Status: F Test Note: ; ALL PRESUMPTIVE POSITIVE FINDINGS ARE UNCONFIRMED NORMAL VALUES THRESHOLD IN NG/ML AMPHETAMINES 1000 METHAMPHETAMINES 1000 BARBITURATES 300 BENZODIAZEPINES 300 CANNABINOIDS (THC) 50 COCAINE METABOLITE 300 METHADONE 300 OPIATES 300 PHENCYCLIDINE 25 TRICYCLIC ANTIDEPRESSANTS 1000 RESULTS ARE FOR MEDICAL PURPOSES ONLY. ALL URINE SPECIMENS WILL BE SAVED FOR 3 DAYS. IF CONFIRMATION OF A PRESUMPTIVE POSTIVE SCREEN RESULT IS DESIRED, CALL CHEMISTRY ([phone]) AND REQUEST URINE TO BE SENT TO REFERENCE LAB. FOR A LIST OF CLOSELY RELATED COMPOUNDS PLEASE CALL THE LAB. Lab Order: Prolactin; SPEC'M 10/05/16 07:39 Test: PROLACTIN; Value: 5.8; Units: NG/ML; Status: F Test Note: ; Non-: 2.8 - 29.2 ng/mL : 9.7 - 208.5 ng/mL Post Menopausal: 1.8 - 20.3 ng/mL Outcome: 10:04 Discharge ordered by Provider. pc 10:29 Discharge Assessment: Patient awake, alert and oriented x 3. No cognitive and/or srm functional deficits noted. Patient verbalized understanding of disposition instructions. 10:30 Discharge Assessment: patient administered narcotics - no. The following High Risk srm Discharge criteria are identified: None. Discharged to home ambulatory. Condition: stable. Discharge instructions given to patient, Instructed on discharge instructions, follow up and referral plans. Demonstrated understanding of instructions, Pt was receptive of discharge instructions/ teaching. Work note provided to patient. No special radiology studies were completed. Property sent home with patient. 10:30 Patient left the ED. srm Signatures: Bird Johnson MD MD pc Michelson, Staci RN RN srm Romario Hurtado, RN RN Cornelia Ford RN RN [email or web address] Mukund Heaton, RIDES SUPERVISOR RIDES SUPERVISOR kb5 Malathi Avila, RIDES SUPERVISOR RIDES SUPERVISOR ct3 William Coleman mm15 Trina Campbell RN RN js15 Hoa Weems, RIDES SUPERVISOR RIDES SUPERVISOR cln Kirstie Farias2 Chart Complete MTDD
== END 2016-10-05 10:30 | disposition home or self-care (01) ==
LOC: M ED 05:50
DX: G43.909 Migraine, unspecified, not intractable, without status migrainosus (principal); G40.309 Generalized idiopathic epilepsy and epileptic syndromes, not intractable, without status epilepticus; F41.9 Anxiety disorder, unspecified; F31.9 Bipolar disorder, unspecified; B19.20 Unspecified viral hepatitis C without hepatic coma; F43.10 Post-traumatic stress disorder, unspecified; N80.9 Endometriosis, unspecified; Z79.3 Long term (current) use of hormonal contraceptives; Z79.899 Other long term (current) drug therapy; Z88.6 Allergy status to analgesic agent

== ENCOUNTER → 2016-10-06 | Outpatient (RCR) | payer OTHER | END | disposition home or self-care (01) | LOC: M OUTALCOH 09-11 14:49 | PROVIDERS: ATTEND Psychiatry & Neurology Psychiatry | DX: F11.20 Opioid dependence, uncomplicated (principal) ==

== ENCOUNTER → 2016-10-15 | Outpatient (REF) | payer OTHER | LOC: M SFHCPLAZ 11:03 | PROVIDERS: ATTEND Student in an Organized Health Care Education/Training Program | DX: R30.0 Dysuria (principal) ==

== ENCOUNTER 2016-11-02 16:00 | Outpatient (RCR) | payer OTHER | END 2016-11-03 | LOC: M OUTALCOH 16:00 | PROVIDERS: ATTEND Psychiatry & Neurology Psychiatry | DX: F11.20 Opioid dependence, uncomplicated (principal) ==

== ENCOUNTER 2016-11-05 12:41 | Emergency (ER) | payer OTHER ==
[~2016-11-05] VITALS: Ht 157.5 cm; Wt 61.2 kg
[2016-11-05] MEDS ORDERED: LAMI1TAB8 PO (12:59)
[2016-11-05] MEDS ORDERED: birth control PO (12:59)
[2016-11-05] MEDS ORDERED: diphenhydrAMINE INJ 50MG/ML VIAL (J1200) IV STA (14:50)
[2016-11-05] MEDS ORDERED: METOCLOPRAMIDE INJ 10MG/2ML VIAL (J2765) IV ONE (15:00)
[2016-11-05] MEDS ORDERED: MORPHINE 2 MG/ML 1ML SYRINGE IV ONE (15:00)
[2016-11-05] MEDS ORDERED: NS 1,000 ML IV ONE (15:00)
[2016-11-05] MEDS ORDERED: REGL10TA6 PO (16:13)
[2016-11-05 16:30] VITALS: BP 97/56
== END 2016-11-05 17:04 | disposition home or self-care (01) ==
LOC: M ED 15:30
DX: G43.909 Migraine, unspecified, not intractable, without status migrainosus (principal); F17.200 Nicotine dependence, unspecified, uncomplicated; Z79.899 Other long term (current) drug therapy; Z88.8 Allergy status to other drugs, medicaments and biological substances

== ENCOUNTER 2016-12-01 08:00 | Outpatient (RCR) | payer OTHER ==
[~2016-12-01 08:00] MED LIST changes: -BENT10CA PO; -MIRA3350 PO
[2016-12-04] MEDS ORDERED: BENT10CA PO (08:33)
[2016-12-04] MEDS ORDERED: MIRA3350 PO (08:33)
== END 2016-12-04 ==
LOC: M OUTALCOH 08:00
PROVIDERS: ATTEND Psychiatry & Neurology Psychiatry
DX: F11.20 Opioid dependence, uncomplicated (principal)

== ENCOUNTER → 2016-12-01 | Outpatient (CLI) | payer OTHER ==
[~2016-12-01] MED LIST changes: +BENT10CA PO; +LAMI1TAB8 PO; +MIRA3350 PO; +REGL10TA6 PO
[2016-12-01 10:15] LABS: BASO % 0.2 % (0.0-1.0); EOS % 0.3 % (0.0-3.0); LARGE UNSTAINED CELL # 0.1 K/mm3 (0.0-0.4); LARGE UNSTAINED CELL % 1.2 % (0.0-4.0); LYMPH # 1.5 K/mm3 (1.5-6.5); LYMPH % 26.5 % (24.0-44.0); MEAN CORPUSCULAR HEMOGLOBIN 29.4 pg (27.0-33.0); MEAN CORPUSCULAR HGB CONC 33.3 g/dl (32.0-36.5); MEAN CORPUSCULAR VOLUME 88.3 fl (80.0-96.0); MONO # 0.2 K/mm3 (0.0-0.8); MONO % 3.8 % (0.0-5.0); NEUTROPHILS # 3.8 K/mm3 (1.8-7.7); NEUTROPHILS % 67.9 % (36.0-66.0); PLATELET COUNT, AUTOMATED 369 k/mm3 (150-450); RED CELL DISTRIBUTION WIDTH 11.5 % (11.5-14.5); WHITE BLOOD COUNT 5.6 K/mm3 (4.0-10.0)
[2016-12-01 10:28] LABS: ALBUMIN 4.1 GM/DL (3.2-5.2); ALBUMIN/GLOBULIN RATIO 1.24 (1.00-1.93); BILIRUBIN,TOTAL 0.5 MG/DL (0.2-1.0); CREATININE FOR GFR 1.15 MG/DL (0.55-1.02); GLOMERULAR FILTRATION RATE 59.4 (>60); TOTAL PROTEIN 7.4 GM/DL (6.4-8.2)
[2016-12-03 10:15] LABS: ALT 22 IU/L (0-40); GGT 8 IU/L (0-60); HAPTOGLOBIN 145 mg/dL (34-200); NECROINFLAM SCORE 0.07 (0.00-0.17); NECROINFLAMM GRADE A0-No activity (.); TOTAL BILIRUBIN 0.4 mg/dL (0.0-1.2)
== END ==
LOC: M LAB 08:46
PROVIDERS: ATTEND Internal Medicine Infectious Disease
DX: B18.2 Chronic viral hepatitis C (principal)

== ENCOUNTER → 2016-12-01 | Outpatient (CLI) | payer OTHER ==
--- NOTE | 2016-12-01 09:25 | REP ---
HEPATIC ULTRASOUND: 12/01/2016. Comparison: CT 07/21/2016, ultrasound 07/02/2016, 04/25/2016. Clinical history: Chronic hepatitis C. Findings: Sonographic evaluation shows the liver homogeneous in echotexture and normal size. It measures 13.5 cm in vertical height in the midclavicular line. There is no focal hepatic mass, intrahepatic biliary dilatation nor adjacent ascites. Gallbladder shows normal wall thickness and no stone, sludge or pericholecystic fluid. Common duct 2.5 mm and unremarkable. Pancreas portions visualized are normal without ductal dilatation, mass or echogenic foci. Right kidney is 10.3 x 5.1 x 3.4 cm without hydronephrosis. Color flow seen in the aorta. Impression: 1. No hepatomegaly, focal hepatic lesions or abnormal echotexture of the liver. 2. No biliary dilatation, adjacent ascites or abnormality of the gallbladder. 3. Pancreas and right kidney unremarkable. Stable examination. Signed by Primitivo Barton MD 12/01/2016 05:02 P
== END ==
LOC: M RAD 07:14
PROVIDERS: ATTEND Internal Medicine Infectious Disease
DX: B18.2 Chronic viral hepatitis C (principal)

== ENCOUNTER 2016-12-04 05:33 | Emergency (ER) | payer OTHER ==
[~2016-12-04] VITALS: Ht 152.4 cm; Wt 59.0 kg
[~2016-12-04 05:33] MED LIST changes: -BENT10CA PO; +KLOR20PO12 PO; -MIRA3350 PO; -POTA20PW PO
[2016-12-04] MEDS ORDERED: NS 1,000 ML IV ONE (06:30)
[2016-12-04] MEDS ORDERED: ONDANSETRON 4MG/2ML VIAL (J2405) IV ONE (06:30)
[2016-12-04] MEDS: MORPHINE 4 MG/ML 1ML SYRINGE IV PRN ×2 (06:31→07:19)
[2016-12-04 06:35] LABS: BASO % 0.5 % (0.0-1.0); EOS # 0.1 K/mm3 (0.0-0.50); EOS % 1.1 % (0.0-3.0); LARGE UNSTAINED CELL # 0.1 K/mm3 (0.0-0.4); LARGE UNSTAINED CELL % 2.3 % (0.0-4.0); LYMPH # 2.4 K/mm3 (1.5-6.5); LYMPH % 38.5 % (24.0-44.0); MEAN CORPUSCULAR HEMOGLOBIN 29.3 pg (27.0-33.0); MEAN CORPUSCULAR HGB CONC 32.9 g/dl (32.0-36.5); MONO # 0.3 K/mm3 (0.0-0.8); MONO % 5.6 % (0.0-5.0); NEUTROPHILS # 3.1 K/mm3 (1.8-7.7); NEUTROPHILS % 51.9 % (36.0-66.0); PLATELET COUNT, AUTOMATED 380 k/mm3 (150-450); RED CELL DISTRIBUTION WIDTH 11.7 % (11.5-14.5)
[2016-12-04 06:43] LABS: CONTROL LINE HCG INT CTR LINE PRESENT
[2016-12-04 06:51] LABS: ALBUMIN 4.2 GM/DL (3.2-5.2); ALBUMIN/GLOBULIN RATIO 1.05 (1.00-1.93); ALKALINE PHOSPHATASE 30 U/L (45-117); ALT/SGPT 28 U/L (12-78); ANION GAP 4 MEQ/L (8-16); AST/SGOT 21 U/L (15-37); BILIRUBIN,DIRECT 0.1 MG/DL (0.0-0.2); BILIRUBIN,TOTAL 0.7 MG/DL (0.2-1.0); BLOOD UREA NITROGEN 13 MG/DL (7-18); CARBON DIOXIDE LEVEL 31 MEQ/L (21-32); CHLORIDE LEVEL 105 MEQ/L (98-107); GLOMERULAR FILTRATION RATE 56.5 (>60); GLUCOSE, FASTING 91 MG/DL (70-105); POTASSIUM SERUM 3.2 MEQ/L (3.5-5.1); SODIUM LEVEL 140 MEQ/L (136-145); TOTAL PROTEIN 8.2 GM/DL (6.4-8.2)
[2016-12-04] MEDS ORDERED: ISOVUE-370 76% 100ML VIAL (Q9967) As Ordered ONE (07:02)
[2016-12-04 08:06] LABS: METHADONE URINE NEGATIVE (NEGATIVE)
[2016-12-04 08:26] VITALS: BP 112/66
--- NOTE | 2016-12-04 08:26 | REP ---
Clinical: Left flank pain. Technique: Axial contrast enhanced images from the lung bases to the pubic symphysis using 100 ml Isovue 370 intravenous contrast material with coronal and sagittal re-formations. Comparison: 07/21/2016. Findings: Lung bases clear. Liver, spleen, pancreas, gallbladder, bilateral adrenal glands and kidneys are normal. The enteric system is without obstruction or acute inflammatory process. Pelvis demonstrates normal bladder and age-appropriate uterus/adnexa with evidence for prior tubal ligation. No significant free fluid or ascites. No free air. No adenopathy. Vasculature is normal. Surrounding musculoskeletal structures are intact. Impression: Normal contrast enhanced CT of the abdomen and pelvis. Signed by Mike Tinoco MD 12/04/2016 08:17 A
[2016-12-04] MEDS ORDERED: MIRA3350 PO (08:33)
[2016-12-04] MEDS ORDERED: BENT10CA PO (08:33)
== END 2016-12-04 08:57 | disposition home or self-care (01) ==
LOC: M ED 06:07
DX: K59.00 Constipation, unspecified (principal); R10.9 Unspecified abdominal pain; G89.29 Other chronic pain; B19.20 Unspecified viral hepatitis C without hepatic coma; Z79.899 Other long term (current) drug therapy; Z88.8 Allergy status to other drugs, medicaments and biological substances

== ENCOUNTER → 2016-12-04 | Outpatient (CLI) | payer OTHER ==
[~2016-12-04] MED LIST changes: +BENT10CA PO; +MIRA3350 PO
--- NOTE | 2016-12-04 16:00 | REP ---
LOW-DOSE ENDOVAGINAL PROBE PELVIC ULTRASOUND: 12/04/2016. Comparison: Ultrasound 09/22/2013, CT 07/21/2016. Transabdominal imaging was limited as the bladder is only partially filled measuring 4.9 x 3.5 x 7.5 cm. Uterus is anteverted. It measures 6.8 x 4.6 x 5 cm. There is a central endometrial echogenic stripe with a normal three line appearance and thickness of 3.6 mm. No fluid the endometrial cavity or endocervical canal. The right ovary is 2.9 x 2.6 x 3.2 cm without cyst or solid mass. Doppler tracing shows resistive index 0.47. The left ovary is 2.3 x 1.7 x 2.5 cm with no mass or cyst and with Doppler tracing showing resistive index of 0.45. Neither ovary shows adjacent free fluid nor solid adnexal mass. Impression: 1. Anteverted uterus without mass or thickening of the endometrial stripe and no fluid in the endometrial cavity or cervical canal. 2. Normal ovarian size and with no evidence of torsion, adjacent free fluid, cyst or solid mass. Essentially normal pelvic ultrasound. Signed by Primitivo Barton MD 12/04/2016 08:14 P
== END ==
LOC: M RAD 14:48
PROVIDERS: ATTEND Hospitalist
DX: R10.32 Left lower quadrant pain (principal)

== ENCOUNTER 2016-12-28 16:00 | Outpatient (RCR) | payer OTHER ==
[~2016-12-28 16:00] MED LIST changes: +BENT10CA PO; +MIRA3350 PO
== END 2017-01-03 ==
LOC: M OUTALCOH 16:00
PROVIDERS: ATTEND Psychiatry & Neurology Psychiatry
DX: F11.20 Opioid dependence, uncomplicated (principal)

== ENCOUNTER → 2017-01-04 | Outpatient (REF) | payer OTHER ==
[2017-01-04 14:01] LABS: ALBUMIN 3.7 GM/DL (3.2-5.2); ANION GAP 4 MEQ/L (8-16); BLOOD UREA NITROGEN 15 MG/DL (7-18); CALCIUM LEVEL 8.4 MG/DL (8.5-10.1); CARBON DIOXIDE LEVEL 32 MEQ/L (21-32); CHLORIDE LEVEL 106 MEQ/L (98-107); CREATININE FOR GFR 1.03 MG/DL (0.55-1.02); GLOMERULAR FILTRATION RATE > 60.0 (>60); GLUCOSE, FASTING 73 MG/DL (70-105); PHOSPHORUS LEVEL 3.9 MG/DL (2.5-4.9); POTASSIUM SERUM 3.4 MEQ/L (3.5-5.1); SODIUM LEVEL 142 MEQ/L (136-145)
== END ==
LOC: M SFHCPLAZ 10:08
PROVIDERS: ATTEND Hospitalist
DX: N17.9 Acute kidney failure, unspecified (principal)

== ENCOUNTER 2017-01-28 15:00 | Outpatient (RCR) | payer OTHER | END 2017-02-03 | LOC: M OUTALCOH 15:00 | PROVIDERS: ATTEND Psychiatry & Neurology Psychiatry | DX: F11.20 Opioid dependence, uncomplicated (principal) ==

== ENCOUNTER 2017-02-17 12:19 | Emergency (ER) | payer OTHER ==
[~2017-02-17] VITALS: Ht 154.9 cm; Wt 59.1 kg
[2017-02-17 13:59] LABS: CONTROL LINE HCG INT CTR LINE PRESENT
[2017-02-17 14:02] LABS: BASO % 0.5 % (0.0-1.0); EOS # 0.1 K/mm3 (0.0-0.50); EOS % 1.3 % (0.0-3.0); LARGE UNSTAINED CELL # 0.1 K/mm3 (0.0-0.4); LARGE UNSTAINED CELL % 2.2 % (0.0-4.0); LYMPH # 2.3 K/mm3 (1.5-6.5); LYMPH % 33.1 % (24.0-44.0); MEAN CORPUSCULAR HEMOGLOBIN 29.6 pg (27.0-33.0); MEAN CORPUSCULAR HGB CONC 33.8 g/dl (32.0-36.5); MEAN CORPUSCULAR VOLUME 87.7 fl (80.0-96.0); MONO # 0.3 K/mm3 (0.0-0.8); MONO % 4.7 % (0.0-5.0); NEUTROPHILS # 3.8 K/mm3 (1.8-7.7); NEUTROPHILS % 58.2 % (36.0-66.0); PLATELET COUNT, AUTOMATED 321 k/mm3 (150-450); RED CELL DISTRIBUTION WIDTH 12.1 % (11.5-14.5); WHITE BLOOD COUNT 6.6 K/mm3 (4.0-10.0)
[2017-02-17 14:06] LABS: ANION GAP 8 MEQ/L (8-16); BLOOD UREA NITROGEN 14 MG/DL (7-18); CALCIUM LEVEL 8.8 MG/DL (8.5-10.1); CARBON DIOXIDE LEVEL 28 MEQ/L (21-32); CHLORIDE LEVEL 104 MEQ/L (98-107); CREATININE FOR GFR 1.16 MG/DL (0.55-1.02); GLOMERULAR FILTRATION RATE 58.8 (>60); GLUCOSE, FASTING 82 MG/DL (70-105); POTASSIUM SERUM 3.3 MEQ/L (3.5-5.1); SODIUM LEVEL 140 MEQ/L (136-145)
[2017-02-17 14:23] VITALS: BP 104/70
[2017-02-17 14:52] LABS: METHADONE URINE NEGATIVE (NEGATIVE)
== END 2017-02-17 15:39 | disposition home or self-care (01) ==
LOC: M ED 13:14
DX: G40.909 Epilepsy, unspecified, not intractable, without status epilepticus (principal); Z86.19 Personal history of other infectious and parasitic diseases; F17.200 Nicotine dependence, unspecified, uncomplicated; Z79.899 Other long term (current) drug therapy; Z88.6 Allergy status to analgesic agent

== ENCOUNTER 2017-03-01 16:00 | Outpatient (RCR) | payer OTHER ==
[~2017-03-01 16:00] MED LIST changes: +CLIN150C14 PO; -CLIN1CAP5 PO; +TRAZ-136 PO; -TRAZ100T4 PO
== END 2017-03-05 | disposition home or self-care (01) ==
LOC: M OUTALCOH 16:00
PROVIDERS: ATTEND Psychiatry & Neurology Psychiatry
DX: F11.20 Opioid dependence, uncomplicated (principal)

== ENCOUNTER 2017-03-23 08:28 | Emergency (ER) | payer OTHER ==
[~2017-03-23] VITALS: Ht 154.9 cm; Wt 60.5 kg
[2017-03-23 08:29] VITALS: BP 123/77
[2017-03-23] MEDS ORDERED: KEPP1TAB PO (08:41)
[2017-03-23] MEDS ORDERED: SERT50TA PO (08:42)
[2017-03-23 09:33] LABS: BASO % 0.7 % (0.0-1.0); EOS # 0.1 K/mm3 (0.0-0.50); EOS % 2.6 % (0.0-3.0); LARGE UNSTAINED CELL # 0.1 K/mm3 (0.0-0.4); LARGE UNSTAINED CELL % 1.8 % (0.0-4.0); LYMPH # 1.8 K/mm3 (1.5-6.5); LYMPH % 34.9 % (24.0-44.0); MEAN CORPUSCULAR HEMOGLOBIN 30.2 pg (27.0-33.0); MEAN CORPUSCULAR VOLUME 88.6 fl (80.0-96.0); MONO # 0.3 K/mm3 (0.0-0.8); MONO % 5.1 % (0.0-5.0); NEUTROPHILS # 2.8 K/mm3 (1.8-7.7); NEUTROPHILS % 54.9 % (36.0-66.0); PLATELET COUNT, AUTOMATED 289 k/mm3 (150-450); RED CELL DISTRIBUTION WIDTH 11.6 % (11.5-14.5); WHITE BLOOD COUNT 5.2 K/mm3 (4.0-10.0)
[2017-03-23 09:55] LABS: ALBUMIN 3.5 GM/DL (3.2-5.2); ALBUMIN/GLOBULIN RATIO 1.13 (1.00-1.93); ALKALINE PHOSPHATASE 27 U/L (45-117); ALT/SGPT 24 U/L (12-78); ANION GAP 3 MEQ/L (8-16); AST/SGOT 19 U/L (15-37); BILIRUBIN,DIRECT < 0.1 MG/DL (0.0-0.2); BILIRUBIN,TOTAL 0.2 MG/DL (0.2-1.0); BLOOD UREA NITROGEN 14 MG/DL (7-18); CALCIUM LEVEL 8.4 MG/DL (8.5-10.1); CARBON DIOXIDE LEVEL 35 MEQ/L (21-32); CHLORIDE LEVEL 101 MEQ/L (98-107); CREATININE FOR GFR 0.88 MG/DL (0.55-1.02); GLOMERULAR FILTRATION RATE > 60.0 (>60); GLUCOSE, FASTING 80 MG/DL (70-105); POTASSIUM SERUM 3.3 MEQ/L (3.5-5.1); SODIUM LEVEL 139 MEQ/L (136-145); TOTAL PROTEIN 6.6 GM/DL (6.4-8.2)
[2017-03-23 11:09] LABS: METHADONE URINE NEGATIVE (NEGATIVE)
[2017-03-23] MEDS ORDERED: LIDO5DIS41 TD (11:45)
== END 2017-03-23 11:45 | disposition home or self-care (01) ==
LOC: M ED 08:28
DX: M54.5 Low back pain (principal); F11.10 Opioid abuse, uncomplicated; N18.3 Chronic kidney disease, stage 3 (moderate); Z86.19 Personal history of other infectious and parasitic diseases; F17.200 Nicotine dependence, unspecified, uncomplicated; Z79.899 Other long term (current) drug therapy; Z88.6 Allergy status to analgesic agent

== ENCOUNTER → 2017-04-19 | Outpatient (REF) | payer OTHER ==
[~2017-04-19] MED LIST changes: +KEPP1TAB PO; +LIDO5DIS41 TD; +SERT50TA PO
[2017-04-19 12:30] LABS: ALBUMIN 4.2 GM/DL (3.2-5.2); ALBUMIN/GLOBULIN RATIO 1.2 (1.00-1.93); ANION GAP 6 MEQ/L (8-16); BILIRUBIN,DIRECT 0.2 MG/DL (0.0-0.2); BILIRUBIN,TOTAL 0.6 MG/DL (0.2-1.0); BLOOD UREA NITROGEN 18 MG/DL (7-18); CALCIUM LEVEL 9.4 MG/DL (8.5-10.1); CARBON DIOXIDE LEVEL 32 MEQ/L (21-32); CHLORIDE LEVEL 103 MEQ/L (98-107); CREATININE FOR GFR 1.05 MG/DL (0.55-1.02); GLOMERULAR FILTRATION RATE > 60.0 (>60); GLUCOSE, FASTING 75 MG/DL (70-105); MAGNESIUM LEVEL 2.6 MG/DL (1.8-2.4); POTASSIUM SERUM 3.6 MEQ/L (3.5-5.1); SODIUM LEVEL 141 MEQ/L (136-145); TOTAL PROTEIN 7.7 GM/DL (6.4-8.2)
[2017-04-21 00:07] LABS: HEPATITIS C QUANTITATION 10250 IU/mL (.)
== END ==
LOC: M SFHCPLAZ 09:35
PROVIDERS: ATTEND Internal Medicine Infectious Disease
DX: B17.10 Acute hepatitis C without hepatic coma (principal)

== ENCOUNTER 2017-05-04 16:58 | Emergency (ER) | payer OTHER ==
[~2017-05-04] VITALS: Ht 152.4 cm; Wt 59.0 kg
[2017-05-04] MEDS ORDERED: METOCLOPRAMIDE INJ 10MG/2ML VIAL (J2765) IV ONE (18:15)
[2017-05-04] MEDS ORDERED: NS 1,000 ML IV ONE (18:15)
[2017-05-04] MEDS ORDERED: ONDANSETRON 4MG/2ML VIAL (J2405) IV ONE (18:45)
[2017-05-04 18:59] LABS: ALBUMIN 3.7 GM/DL (3.2-5.2); ALBUMIN/GLOBULIN RATIO 1.09 (1.00-1.93); ALKALINE PHOSPHATASE 38 U/L (45-117); ALT/SGPT 85 U/L (12-78); ANION GAP 8 MEQ/L (8-16); AST/SGOT 51 U/L (15-37); BILIRUBIN,TOTAL 0.3 MG/DL (0.2-1.0); BLOOD UREA NITROGEN 21 MG/DL (7-18); CALCIUM LEVEL 8.4 MG/DL (8.5-10.1); CARBON DIOXIDE LEVEL 27 MEQ/L (21-32); CHLORIDE LEVEL 106 MEQ/L (98-107); CREATININE FOR GFR 0.94 MG/DL (0.55-1.02); GLOMERULAR FILTRATION RATE > 60.0 (>60); GLUCOSE, FASTING 75 MG/DL (70-105); SODIUM LEVEL 141 MEQ/L (136-145); TOTAL PROTEIN 7.1 GM/DL (6.4-8.2)
[2017-05-04 19:02] LABS: POTASSIUM SERUM 3.7 MEQ/L (3.5-5.1)
[2017-05-04] MEDS ORDERED: diphenhydrAMINE INJ 50MG/ML VIAL (J1200) IV STA (19:18)
[2017-05-04] MEDS ORDERED: MORPHINE 2 MG/ML 1ML SYRINGE IV ONE (20:00)
[2017-05-04] MEDS ORDERED: ZOFR4TAB3 PO (20:35)
[2017-05-04 20:56] VITALS: BP 110/68
== END 2017-05-04 21:01 | disposition home or self-care (01) ==
LOC: M ED 16:58
DX: G43.909 Migraine, unspecified, not intractable, without status migrainosus (principal); Z79.899 Other long term (current) drug therapy; Z88.6 Allergy status to analgesic agent; Z87.820 Personal history of traumatic brain injury; R56.9 Unspecified convulsions; R07.9 Chest pain, unspecified; J45.909 Unspecified asthma, uncomplicated; K59.00 Constipation, unspecified; Z87.01 Personal history of pneumonia (recurrent); Z87.440 Personal history of urinary (tract) infections; Z85.41 Personal history of malignant neoplasm of cervix uteri; E11.9 Type 2 diabetes mellitus without complications; Z86.19 Personal history of other infectious and parasitic diseases; F41.9 Anxiety disorder, unspecified; F32.9 Major depressive disorder, single episode, unspecified; F19.10 Other psychoactive substance abuse, uncomplicated
CPT/HCPCS: 80053; 96374; 96375; 99283; J1200; J2405; J2765

== ENCOUNTER 2017-11-05 11:47 | Emergency (ER) | payer OTHER ==
[2017-11-05 12:43] LABS: BASO % 0.6 % (0.0-1.0); EOS % 0.8 % (0.0-3.0); HEMATOCRIT 32.8 % (36.0-47.0); HEMOGLOBIN 11.3 g/dl (12.0-16.0); IMMATURE GRANULOCYTE % 0.2 % (0-3.0); LYMPH # 1.6 10^3/uL (1.5-4.5); LYMPH % 33.1 % (24.0-44.0); MEAN CORPUSCULAR HGB CONC 34.5 g/dl (32.0-36.5); MEAN CORPUSCULAR VOLUME 84.3 fl (80.0-96.0); MONO # 0.4 10^3/uL (0.0-0.8); MONO % 7.7 % (0.0-5.0); NEUTROPHILS # 2.8 10^3/uL (1.8-7.7); NEUTROPHILS % 57.6 % (36.0-66.0); PLATELET COUNT, AUTOMATED 208 10^3/uL (150-450); RED BLOOD COUNT 3.89 10^6/uL (4.00-5.40); RED CELL DISTRIBUTION WIDTH 11.9 % (11.5-14.5); WHITE BLOOD COUNT 4.8 10^3/uL (4.0-10.0)
[2017-11-05 13:00] LABS: CONTROL LINE HCG INT CTR LINE PRESENT; HCG, SERUM QUALITATIVE NEGATIVE (NEGATIVE)
[2017-11-05] MEDS: NS 1,000 ML IV ×3 (13:00)
[2017-11-05 13:17] LABS: ALBUMIN 3.8 GM/DL (3.2-5.2); ALBUMIN/GLOBULIN RATIO 1.31 (1.00-1.93); ALKALINE PHOSPHATASE 35 U/L (45-117); ALT/SGPT 34 U/L (12-78); ANION GAP 3 MEQ/L (8-16); AST/SGOT 116 U/L (7-37); BILIRUBIN,DIRECT 0.1 MG/DL (0.0-0.2); BILIRUBIN,TOTAL 0.5 MG/DL (0.2-1.0); BLOOD UREA NITROGEN 15 MG/DL (7-18); CALCIUM LEVEL 8.5 MG/DL (8.5-10.1); CARBON DIOXIDE LEVEL 32 MEQ/L (21-32); CHLORIDE LEVEL 104 MEQ/L (98-107); CREATININE FOR GFR 0.86 MG/DL (0.55-1.30); GLOMERULAR FILTRATION RATE > 60.0 (>60); GLUCOSE, FASTING 98 MG/DL (70-100); MAGNESIUM LEVEL 2.5 MG/DL (1.8-2.4); PHOSPHORUS LEVEL 3.8 MG/DL (2.5-4.9); SODIUM LEVEL 139 MEQ/L (136-145); TOTAL PROTEIN 6.7 GM/DL (6.4-8.2)
[2017-11-05 15:23] LABS: KETONE, URINE AUTO RFX NEGATIVE (NEGATIVE); MUCUS, URINE RFX SMALL (NEGATIVE); NITRITE, URINE AUTO RFX NEGATIVE (NEGATIVE); RBC, URINE AUTO RFX 2 /HPF (0-3); SPECIFIC GRAVITY UR AUTO RFX 1.012 (1.002-1.035); SQUAM EPITHELIAL CELL UR AURFX 17 /HPF (0-6); WBC, URINE AUTO RFX 3 /HPF (0-3)
[2017-11-05 15:33] LABS: AMPHETAMINES LEVEL URINE NEGATIVE (NEGATIVE); BARBITURATES URINE NEGATIVE (NEGATIVE); BENZODIAZEPINES URINE NEGATIVE (NEGATIVE); CANNABINOIDS URINE NEGATIVE (NEGATIVE); COCAINE METABOLITE URINE NEGATIVE (NEGATIVE); LEUKOCYTE ESTERASE UR AUTO RFX TRACE (NEGATIVE); METHADONE URINE NEGATIVE (NEGATIVE); OPIATES URINE NEGATIVE (NEGATIVE); PHENCYCLIDINE URINE NEGATIVE (NEGATIVE)
[2017-11-08 00:07] LABS: LEVETIRACETAM (KEPPRA) None Detected ug/mL (10.0-40.0)
== END 2017-11-05 17:04 | disposition home or self-care (01) ==
LOC: M ED 11:47
DX: S06.0X9A Concussion with loss of consciousness of unspecified duration, initial encounter (principal); W22.8XXA Striking against or struck by other objects, initial encounter; Y92.512 Supermarket, store or market as the place of occurrence of the external cause; Y93.89 Activity, other specified; Y99.8 Other external cause status; F31.9 Bipolar disorder, unspecified; F41.9 Anxiety disorder, unspecified; B18.2 Chronic viral hepatitis C; F19.11 Other psychoactive substance abuse, in remission; Z79.899 Other long term (current) drug therapy; Z88.8 Allergy status to other drugs, medicaments and biological substances; Z86.69 Personal history of other diseases of the nervous system and sense organs; Z87.42 Personal history of other diseases of the female genital tract
CPT/HCPCS: 71045

== ENCOUNTER 2017-12-02 13:53 | Emergency (ER) | payer OTHER | END 2017-12-02 15:07 | disposition left against medical advice (07) | LOC: M ED 13:53 | DX: R56.9 Unspecified convulsions (principal); Z53.21 Procedure and treatment not carried out due to patient leaving prior to being seen by health care provider ==

== ENCOUNTER 2020-08-17 20:07 | Emergency (ER) | payer OTHER, SELFPAY ==
[~2020-08-17] VITALS: Ht 152.4 cm; Wt 63.5 kg
[~2020-08-17 20:07] MED LIST changes: -/LAMO10TA PO; -BACTDSTA PO; -BUPR15TAXL PO; +BUPR1TAB43 PO; +IBUP100S44 PO; -IBUP100SUS PO; +LAMI1TAB7 PO; +LAMO100T80 PO; -LAMO10TA PO; +SERT-141 PO; -SERT50TA PO; +SULF1TAB23 PO; -TRAZ-136 PO; +TRAZ-257 PO; +ZOFR4TAB14 PO; -ZOFR4TAB3 PO; +ZOLO100T PO
--- NOTE | 2020-08-17 22:02 | REPVR ---
PROCEDURE INFORMATION: Exam: XR Right Elbow Exam date and time: 08/17/2020 9:58 PM Age: 35 years old Clinical indication: Pain; Elbow; Right; Additional info: Iv drug needle broke off R ac TECHNIQUE: Imaging protocol: XR Right elbow. Views: 3 or more views. COMPARISON: No relevant prior studies available. FINDINGS: Bones/joints: Normal. Soft tissues: Linear metallic density demonstrated in the soft tissues of the antecubital fossa consistent with a broken needle tip. IMPRESSION: Linear metallic density demonstrated in the soft tissues of the antecubital fossa consistent with a broken needle tip. Electronically signed by: Vic Shah On 08/17/2020 22:01:57 PM
[2020-08-17] MEDS ORDERED: BACT800T5 PO (22:32)
[2020-08-17 22:47] VITALS: BP 131/69
--- NOTE | 2020-08-19 19:57 | ED PDOC ---
Post-Departure Follow-Up dr angel faxed formal report of right elbow film for fu Papo Alfaro MD Aug 19, 2020 19:57
== END 2020-08-17 22:49 | disposition home or self-care (01) ==
LOC: M ED 20:07
DX: S50.351A Superficial foreign body of right elbow, initial encounter (principal); W46.1XXA Contact with contaminated hypodermic needle, initial encounter; Y92.019 Unspecified place in single-family (private) house as the place of occurrence of the external cause; Y93.9 Activity, unspecified; F11.10 Opioid abuse, uncomplicated; Z79.899 Other long term (current) drug therapy

== ENCOUNTER → 2021-04-13 | Outpatient (CLI) | payer OTHER ==
[~2021-04-13] MED LIST changes: +BACT800T5 PO; -CLIN150C14 PO; +CLIN150C17 PO
[2021-04-13 10:49] LABS: APPEARANCE, URINE HAZY (CLEAR); BACTERIA, URINE AUTO NEGATIVE (NEGATIVE); BASO % 0.4 % (0.0-1.0); BILIRUBIN, URINE AUTO NEGATIVE (NEGATIVE); BLOOD, URINE BLOOD NEGATIVE (NEGATIVE); COLOR, URINE YELLOW (YELLOW); EOS # 0.2 10^3/uL (0.0-0.5); EOS % 3.6 % (0.0-3.0); GLUCOSE, URINE (UA) AUTO NEGATIVE (NEGATIVE); HEMATOCRIT 37.5 % (36.0-47.0); HEMOGLOBIN 12.4 g/dl (12.0-15.5); KETONE, URINE AUTO NEGATIVE (NEGATIVE); LEUKOCYTE ESTERASE, URINE AUTO NEGATIVE (NEGATIVE); LYMPH # 1.6 10^3/uL (1.5-5.0); LYMPH % 34.4 % (24.0-44.0); MEAN CORPUSCULAR HEMOGLOBIN 28.5 pg (27.0-33.0); MEAN CORPUSCULAR HGB CONC 33.1 g/dl (32.0-36.5); MEAN CORPUSCULAR VOLUME 86.2 fl (80.0-96.0); MONO # 0.4 10^3/uL (0.0-0.8); MONO % 7.6 % (2.0-8.0); MUCUS, URINE SMALL (NEGATIVE); NEUTROPHILS # 2.5 10^3/uL (1.5-8.5); NEUTROPHILS % 53.8 % (36.0-66.0); NITRITE, URINE AUTO NEGATIVE (NEGATIVE); PLATELET COUNT, AUTOMATED 274 10^3/uL (150-450); PROTEIN, URINE AUTO NEGATIVE (NEGATIVE); RBC, URINE AUTO 1 /HPF (0-3); RED BLOOD COUNT 4.35 10^6/uL (4.00-5.40); SPECIFIC GRAVITY URINE AUTO 1.023 (1.002-1.035); SQUAMOUS EPITHELIAL CELL UR AU 3 /HPF (0-6); UROBILINOGEN, URINE AUTO 0.2 mg/dL (0.0-2.0); WBC, URINE AUTO 2 /HPF (0-3); WHITE BLOOD COUNT 4.7 10^3/uL (4.0-10.0)
[2021-04-13 11:15] LABS: ERYTHROCYTE SEDIMENTATION RATE 37 mm/hr (0-20)
[2021-04-13 12:22] LABS: GC DNA AMPLIFICATION NEGATIVE (NEGATIVE)
[2021-04-13 12:38] LABS: ALBUMIN 3.5 GM/DL (3.2-5.2); ALT/SGPT 28 U/L (12-78); BILIRUBIN,TOTAL 0.3 MG/DL (0.2-1.0); BLOOD UREA NITROGEN 18 MG/DL (7-18); CALCIUM LEVEL 8.2 MG/DL (8.5-10.1); CARBON DIOXIDE LEVEL 32 MEQ/L (21-32); CHLORIDE LEVEL 102 MEQ/L (98-107); CPK CREATINE PHOSPHOKINASE 74 U/L (26-192); CREATININE FOR GFR 0.96 MG/DL (0.55-1.30); GLOMERULAR FILTRATION RATE > 60.0 (>60); GLUCOSE, FASTING 137 MG/DL (70-100); NT-PRO BNP 43 PG/ML (<125); POTASSIUM SERUM 3.2 MEQ/L (3.5-5.1); RHEUMATOID FACTOR QUANT < 10.0 IU/ML (<15.0); SODIUM LEVEL 139 MEQ/L (136-145); TOTAL PROTEIN 6.9 GM/DL (6.4-8.2); TROPONIN I < 0.02 NG/ML (< 0.10)
[2021-04-14 10:20] LABS: HEPATITIS B SURFACE ANTIBODY POSITIVE (POSITIVE)
[2021-04-14 10:29] LABS: HEPATITIS B SURFACE ANTIGEN NEGATIVE (NEGATIVE)
[2021-04-14 10:57] LABS: HIV 1&2 SCREEN CENTAUR NEGATIVE (NEGATIVE)
[2021-04-14 11:09] LABS: HEPATITIS C VIRUS ABY INDEX > 11.0 INDEX (<0.8)
[2021-04-16 17:07] LABS: HEPATITIS C QUANTITATION HCV Not Detected IU/mL (.)
[2021-04-21 12:07] LABS: ANGIOTENSIN 1 CONVERTING ENZYM 39 U/L (14-82); ANTINUCLEAR ANTIBODIES DIRECT Negative (Negative); Lyme Disease IgG Ab 18 kDa Ban Absent (.); Lyme Disease IgG Ab 23 kDa Ban Absent (.); Lyme Disease IgG Ab 28 kDa Ban Absent (.); Lyme Disease IgG Ab 30 kDa Ban Absent (.); Lyme Disease IgG Ab 39 kDa Ban Absent (.); Lyme Disease IgG Ab 41 kDa Ban Absent (.); Lyme Disease IgG Ab 45 kDa Ban Absent (.); Lyme Disease IgG Ab 58 kDa Ban Absent (.); Lyme Disease IgG Ab 66 kDa Ban Absent (.); Lyme Disease IgG Ab 93 kDa Ban Absent (.); Lyme Disease IgG West Blot Int Negative (.); Lyme Disease IgG/IgM Antibodie <0.91 ISR (0.00-0.90); Lyme Disease IgM Ab 23 kDa Ban Present (.); Lyme Disease IgM Ab 39 kDa Ban Absent (.); Lyme Disease IgM Ab 41 kDa Ban Absent (.); Lyme Disease IgM Ab Quantitati 0.99 index (0.00-0.79); Lyme Disease IgM West Blot Int Negative (.)
== END ==
LOC: M LAB 09:26
PROVIDERS: ATTEND Internal Medicine
DX: R21 Rash and other nonspecific skin eruption (principal); R60.0 Localized edema; R06.02 Shortness of breath; R63.5 Abnormal weight gain; E87.6 Hypokalemia

== ENCOUNTER → 2022-05-14 | Outpatient (CLI) | payer OTHER | LOC: M LAB 12:14 | PROVIDERS: ATTEND Surgery | DX: R73.03 Prediabetes (principal) ==